=== PATIENT | female | born 1930 | race Caucasian/White ===

== ENCOUNTER 2019-04-07 13:35 | Inpatient (IN) | payer MEDICARE, MEDICAID ==
[~2019-04-07] VITALS: Ht 152.6 cm; Wt 60.8 kg
[~2019-04-07 13:35] MED LIST: AMLO10TA4 PO; ASPI-1073 PO; ATOR40TA70 PO; DESM0.1T PO; FERR-63 PO; HYDR10TA PO; LEVO750T46 MT; LEVO75TA7 PO; LISI10TA5 PO; METFORMIN; OMEP20CA4 PO; SIMVASTATIN PO; SITA50TA3 PO
[2019-04-07 17:01] LABS: HEMATOCRIT. 35.4 % (36.0-48.0); HEMOGLOBIN. 12.6 g/dL (12.0-16.0); MEAN CORPUSCULAR HEMOGLOBIN 28.8 pg (28.0-32.0); MEAN CORPUSCULAR VOLUME 80.7 fL (81.0-99.0); MEAN PLATELET VOLUME 8.1 fl (7.4-10.4); PLATELET 318 x1000/uL (130-400); RED BLOOD CELL COUNT 4.39 mill/uL (4.2-5.4); RED CELL DISTRIBUTION WIDTH 14.3 % (11.6-14.6)
[2019-04-07 17:05] LABS: CLARITY URINE CLEAR (CLEAR); COLOR URINE DARK YELLOW (YELLOW); KETONES URINE NEGATIVE (NEGATIVE); LEUKOCYTE ESTERASE URINE NEGATIVE (NEGATIVE); NITRITE URINE NEGATIVE (NEGATIVE); OCCULT BLOOD URINE NEGATIVE (NEGATIVE); PROTEIN URINE NEGATIVE (NEGATIVE); SPECIFIC GRAVITY URINE 1.013 (1.005-1.030); UROBILINOGEN URINE 0.2 E.U./dL (0.2-1.0)
[2019-04-07] MEDS ORDERED: KCL 20MEQ/100ML PREMIX 100 ML IV NR (17:30)
[2019-04-07] MEDS ORDERED: SODIUM CHLORIDE 0.9% 500 ML IV ONE (17:30)
[2019-04-07 17:38] LABS: PLATELET ESTIMATE NORMAL
[2019-04-07] MEDS ORDERED: LINA5TAB MT (20:34)
[2019-04-07] MEDS ORDERED: VITAMINE D3 (20:39)
[2019-04-07] MEDS ORDERED: FURO20TA4 PO (20:39)
[2019-04-07] MEDS ORDERED: HYDR-2510 PO (20:39)
[2019-04-07] MEDS ORDERED: FISH1CAP34 MT (20:39)
[2019-04-07 23:00] VITALS: BP 105/76
[2019-04-08] MEDS ORDERED: ACETAMINOPHEN 325MG TABLET PO SCH (00:45)
[2019-04-08] MEDS ORDERED: DEXTROSE 50% WATER 50ML SYRINGE IV PRN (00:45)
[2019-04-08] MEDS ORDERED: LEVOFLOXACIN 250MG PREMIX 50 ML IV SCH (01:15)
[2019-04-08] MEDS ORDERED: LEVOFLOXACIN 500MG PREMIX 100 ML IV SCH (03:00)
[2019-04-08] MEDS: SODIUM CHL 0.9% + KCL 20MEQ/L 1,000 ML IV SCH ×2 (05:05→18:19)
[2019-04-08] MEDS: LEVOFLOXACIN 250MG PREMIX 50 ML IV SCH (05:05)
[2019-04-08] MEDS: OMEPRAZOLE 20MG CAPSULE EXTENDED RELEASE PO SCH (06:34)
[2019-04-08] MEDS: BLOOD SUGAR DIAGNOSTIC STRIP TEST SCH ×4 (07:14→21:00)
[2019-04-08] MEDS: INSULIN LISPRO 100 UNITS/ML SUBCUT SCH ×2 (07:50→12:50)
[2019-04-08 07:52] LABS: HEMATOCRIT. 30.4 % (36.0-48.0); HEMOGLOBIN. 10.9 g/dL (12.0-16.0); MEAN CORPUSCULAR HEMOGLOBIN 28.8 pg (28.0-32.0); MEAN CORPUSCULAR VOLUME 80.1 fL (81.0-99.0); PLATELET 267 x1000/uL (130-400); RED BLOOD CELL COUNT 3.79 mill/uL (4.2-5.4); RED CELL DISTRIBUTION WIDTH 14.2 % (11.6-14.6)
[2019-04-08 08:00] VITALS: BP 115/38
[2019-04-08 08:31] LABS: CHLORIDE 80 mEq/L (98-107)
[2019-04-08 08:39] LABS: LDL CHOLESTEROL 73 mg/dL (5-100)
[2019-04-08 08:40] LABS: HDL CHOLESTEROL 39 mg/dL (40-59)
[2019-04-08] MEDS: LISINOPRIL 10MG TABLET PO SCH (09:00)
[2019-04-08] MEDS ORDERED: LEVOTHYROXINE SODIUM 75MCG TABLET PO SCH (09:00)
[2019-04-08] MEDS: AMLODIPINE 5MG TABLET PO SCH (09:00)
[2019-04-08] MEDS: LEVOTHYROXINE SODIUM 75MCG TABLET PO SCH (10:41)
[2019-04-08] MEDS: DOCUSATE SODIUM 250MG CAPSULE PO SCH (10:41)
[2019-04-08 12:00] VITALS: BP 132/48
[2019-04-08 13:51] LABS: PLATELET ESTIMATE NORMAL
[2019-04-08] MEDS ORDERED: NA PHOS,M-B/NA PHOS,DI-BA ENEMA 118ML PR PRN (15:15)
[2019-04-08 16:00] VITALS: BP 129/44
[2019-04-08] MEDS: HYDROCORTISONE 10MG TABLET PO SCH (18:13)
[2019-04-08] MEDS: BISACODYL 10MG SUPP PR PRN (18:13)
[2019-04-08 19:12] LABS: SODIUM URINE RANDOM 46 mEq/L
[2019-04-08 20:00] VITALS: BP 150/59
[2019-04-08] MEDS: POTASSIUM CHLORIDE 20MEQ TABLET SR PO SCH (20:21)
[2019-04-08] MEDS: ATORVASTATIN CALCIUM 40MG TABLET PO SCH (20:21)
[2019-04-09] VITALS: BP 123/62
[2019-04-09 04:00] VITALS: BP 140/57
[2019-04-09] MEDS: LEVOFLOXACIN 250MG PREMIX 50 ML IV SCH (04:15)
[2019-04-09] MEDS: SODIUM CHL 0.9% + KCL 20MEQ/L 1,000 ML IV SCH (04:18)
[2019-04-09] MEDS: LEVOTHYROXINE SODIUM 75MCG TABLET PO SCH (06:35)
[2019-04-09] MEDS: OMEPRAZOLE 20MG CAPSULE EXTENDED RELEASE PO SCH (06:35)
[2019-04-09 07:01] LABS: CHLORIDE 92 mEq/L (98-107)
[2019-04-09 07:32] LABS: PHOSPHORUS 1.9 mg/dL (2.5-4.9)
[2019-04-09] MEDS: BLOOD SUGAR DIAGNOSTIC STRIP TEST SCH ×5 (07:35→21:04)
[2019-04-09 07:58] LABS: BASOPHILS % 0.5 % (0.0-2.0); EOSINOPHILS % 3.2 % (0.0-5.0); LYMPHOCYTES % 7.6 % (20.0-50.0); MEAN CORPUSCULAR VOLUME 81.7 fL (81.0-99.0); MEAN PLATELET VOLUME 8.1 fl (7.4-10.4); MONOCYTES % 13.8 % (2.0-8.0); NEUTROPHILS % 74.9 % (40.0-76.0); PLATELET 279 x1000/uL (130-400); RED BLOOD CELL COUNT 3.79 mill/uL (4.2-5.4); RED CELL DISTRIBUTION WIDTH 14.1 % (11.6-14.6)
[2019-04-09 08:00] VITALS: BP 142/53
[2019-04-09] MEDS: HYDROCORTISONE 10MG TABLET PO SCH ×2 (09:22→17:04)
[2019-04-09] MEDS: POTASSIUM CHLORIDE 20MEQ TABLET SR PO SCH (09:22)
[2019-04-09] MEDS: AMLODIPINE 5MG TABLET PO SCH (09:23)
[2019-04-09] MEDS: LISINOPRIL 10MG TABLET PO SCH (09:23)
[2019-04-09] MEDS: DOCUSATE SODIUM 250MG CAPSULE PO SCH (09:23)
[2019-04-09 12:00] VITALS: BP 108/55
[2019-04-09] MEDS: IPRATROPIUM/ALBUTEROL 0.5-3(2.5)MG/3ML NEB HHN SCH ×3 (13:04→21:16)
[2019-04-09] MEDS ORDERED: POTASSIUM PHOS,M-BASIC-D-BASIC 15 MMOL in DEXT 5% WATER 245 ML IV NR (15:00)
[2019-04-09] MEDS ORDERED: MAGNESIUM 2 G PREMIX 50 ML IV NR (15:00)
[2019-04-09] MEDS ORDERED: CEFAZOLIN SODIUM 1000MG/VIAL IV ONE (15:00)
[2019-04-09 16:00] VITALS: BP 118/38
[2019-04-09] MEDS ORDERED: CEFAZOLIN 1000MG PREMIX 50 ML IV NR (17:00)
[2019-04-09] MEDS: INSULIN LISPRO 100 UNITS/ML SUBCUT SCH ×2 (18:53→21:00)
[2019-04-09 20:00] VITALS: BP 121/43
[2019-04-09] MEDS: FAMOTIDINE 20MG TABLET PO SCH (20:50)
[2019-04-09] MEDS: ATORVASTATIN CALCIUM 40MG TABLET PO SCH (20:50)
[2019-04-10] VITALS (53 sets, daily range): BP systolic 59–159; BP diastolic 20–97
[2019-04-10] MEDS: IPRATROPIUM/ALBUTEROL 0.5-3(2.5)MG/3ML NEB HHN SCH ×5 (00:37→20:05)
[2019-04-10] MEDS: SODIUM CHLORIDE 0.9% 1,000 ML IV SCH ×2 (03:07→22:44)
[2019-04-10] MEDS: LEVOFLOXACIN 250MG PREMIX 50 ML IV SCH (03:07)
[2019-04-10] MEDS ORDERED: BUPIVACAINE HCL/EPINEPHRINE 0.5%/0.0005 30ML ONE (06:30)
[2019-04-10] MEDS ORDERED: BACITRACIN 50,000 UNITS/VIAL ONE (06:32)
[2019-04-10] MEDS: BLOOD SUGAR DIAGNOSTIC STRIP TEST SCH ×8 (06:51→21:12)
[2019-04-10] MEDS: LEVOTHYROXINE SODIUM 75MCG TABLET PO SCH (06:51)
[2019-04-10] MEDS: INSULIN LISPRO 100 UNITS/ML SUBCUT SCH ×4 (06:52→20:56)
[2019-04-10] MEDS ORDERED: SUCCINYLCHOLINE CHLORIDE 200MG/10ML IV ONE (06:59)
[2019-04-10] MEDS ORDERED: EPHEDRINE SULFATE 50MG/ML VIAL ONE (06:59)
[2019-04-10] MEDS ORDERED: SODIUM CHLORIDE 0.9% 10ML VIAL ONE (06:59)
[2019-04-10] MEDS ORDERED: NEOSTIGMINE METHYLSULFATE 1MG/ML 10 ML VIAL ONE (06:59)
[2019-04-10] MEDS ORDERED: ONDANSETRON HCL 4MG/2ML INJ ONE (06:59)
[2019-04-10] MEDS ORDERED: PROPOFOL 200MG/20ML VIAL IV ONE (06:59)
[2019-04-10] MEDS ORDERED: PHENYLEPHRINE HCL 10 MG/ML 1ML (IV VIAL) IV ONE (06:59)
[2019-04-10] MEDS ORDERED: MIDAZOLAM HCL 2 MG/2 ML VIAL ONE (06:59)
[2019-04-10] MEDS ORDERED: GLYCOPYRROLATE 0.2 MG/ML 2ML VIAL ONE (06:59)
[2019-04-10] MEDS ORDERED: CEFAZOLIN SODIUM 1000MG/VIAL ONE (06:59)
[2019-04-10] MEDS ORDERED: FENTANYL CITRATE/PF 50MCG/ML 2ML VIAL ONE ×2 (06:59→07:23)
[2019-04-10] MEDS ORDERED: ROCURONIUM BROMIDE 10MG/ML VIAL 5ML IV ONE (06:59)
[2019-04-10] MEDS ORDERED: METOCLOPRAMIDE HCL 10MG/2ML VIAL ONE (07:00)
[2019-04-10 07:05] LABS: BASOPHILS % 0.4 % (0.0-2.0); EOSINOPHILS % 0.4 % (0.0-5.0); HEMATOCRIT. 28.7 % (36.0-48.0); HEMOGLOBIN. 10.1 g/dL (12.0-16.0); LYMPHOCYTES % 7.3 % (20.0-50.0); MEAN CORPUSCULAR HEMOGLOBIN 29.3 pg (28.0-32.0); MEAN CORPUSCULAR VOLUME 82.8 fL (81.0-99.0); MEAN PLATELET VOLUME 7.9 fl (7.4-10.4); MONOCYTES % 9.7 % (2.0-8.0); NEUTROPHILS % 82.2 % (40.0-76.0); PLATELET 253 x1000/uL (130-400); RED BLOOD CELL COUNT 3.46 mill/uL (4.2-5.4); RED CELL DISTRIBUTION WIDTH 14.5 % (11.6-14.6)
[2019-04-10 07:14] LABS: PHOSPHORUS 3.8 mg/dL (2.5-4.9)
[2019-04-10] MEDS ORDERED: SKIN ADHESIVE 0.7 GM EA TOP ONE (07:39)
[2019-04-10] MEDS: AMLODIPINE 5MG TABLET PO SCH (09:00)
[2019-04-10] MEDS: LISINOPRIL 10MG TABLET PO SCH (09:00)
[2019-04-10] MEDS: HYDROCORTISONE 10MG TABLET PO SCH ×2 (09:00→17:00)
[2019-04-10] MEDS: DOCUSATE SODIUM 250MG CAPSULE PO SCH (09:00)
[2019-04-10 09:56] LABS: BG BASE EXCESS -8.8 mmol/L (-2.0-2.0); BG BILEVEL POS AIRWAY PRESSURE 15/5; BG CARBOXYHEMOGLOBIN 0.1 % (0.5-1.5); BG DEOXYHEMOGLOBIN 2.3 % (0.0-5.0); BG FRACTION INSPIRED OXYGEN 100; BG HCO3 ACT 21.2 mmol/L (22.0-26.0); BG METHEMOGLOBIN 0.1 % (0.0-1.5); BG OXYGEN SATURATION 97.7 % (92.0-98.5); BG OXYHEMOGLOBIN 97.5 % (94.0-97.0); BG PCO2 67.2 mmHg (35.0-45.0); BG PH 7.117 (7.350-7.450); BG PO2 134.3 mmHg (75.0-100.0); BG SAMPLE SITE RIGHT RADIAL; BG TOTAL HEMOGLOBIN 11.7 g/dL (12.0-18.0); BG VENT MODE MASK - BIPAP; BG VENT RATE 14 set
[2019-04-10] MEDS ORDERED: NALOXONE HCL 0.4 MG/ML 1ML VIAL IV SCH (10:00)
[2019-04-10] MEDS ORDERED: FUROSEMIDE 40MG/4ML VIAL IVP NR ×2 (10:15→13:30)
[2019-04-10] MEDS ORDERED: FUROSEMIDE 40MG/4ML VIAL ONE (10:22)
[2019-04-10] MEDS ORDERED: FLUMAZENIL 0.1 MG/ML 5ML VIAL IV SCH (11:00)
[2019-04-10] MEDS ORDERED: PROPOFOL 10MG/ML 100ML 100 ML IV PRN (12:30)
[2019-04-10 12:35] LABS: BG BASE EXCESS -6.5 mmol/L (-2.0-2.0); BG CARBOXYHEMOGLOBIN 0.3 % (0.5-1.5); BG DEOXYHEMOGLOBIN 2.4 % (0.0-5.0); BG FRACTION INSPIRED OXYGEN 60; BG HCO3 ACT 18.9 mmol/L (22.0-26.0); BG METHEMOGLOBIN 0.4 % (0.0-1.5); BG OXYGEN SATURATION 97.6 % (92.0-98.5); BG OXYHEMOGLOBIN 96.9 % (94.0-97.0); BG PCO2 37.1 mmHg (35.0-45.0); BG PH 7.324 (7.350-7.450); BG PO2 99.8 mmHg (75.0-100.0); BG SAMPLE SITE RIGHT BRACHIAL; BG TIDAL VOLUME(mL) 500 mL; BG TOTAL HEMOGLOBIN 12.1 g/dL (12.0-18.0); BG VENT MODE VENT - A/C; BG VENT RATE 10 set
[2019-04-10] MEDS ORDERED: METHYLPREDNISOLONE SOD SUCC 125 MG/2 ML VIAL IV NR ×2 (12:39→12:45)
[2019-04-10] MEDS ORDERED: RACEPINEPHRINE 2.25% 0.5ML NEB VIAL HHN NR (12:45)
[2019-04-10] MEDS ORDERED: IPRATROPIUM/ALBUTEROL 0.5-3(2.5)MG/3ML NEB HHN PRN (12:45)
[2019-04-10] MEDS ORDERED: FENTANYL CITRATE/PF 500 MCG in SODIUM CHLORIDE 0.9% 40 ML IV PRN (13:15)
[2019-04-10] MEDS ORDERED: SODIUM CHLORIDE 0.9% 1,000 ML IV ONE (13:16)
[2019-04-10] MEDS ORDERED: HYDROMORPHONE HCL/PF 2MG/ML CPJ IV PRN (13:30)
[2019-04-10] MEDS ORDERED: ONDANSETRON HCL 4MG/2ML INJ IV PRN (13:30)
[2019-04-10] MEDS ORDERED: MEPERIDINE HCL/PF 25MG/ML CPJ IV PRN (13:30)
[2019-04-10 15:55] LABS: BG BASE EXCESS -4.6 mmol/L (-2.0-2.0); BG CARBOXYHEMOGLOBIN 0.1 % (0.5-1.5); BG DEOXYHEMOGLOBIN 2.3 % (0.0-5.0); BG FRACTION INSPIRED OXYGEN 50; BG HCO3 ACT 18.6 mmol/L (22.0-26.0); BG METHEMOGLOBIN 0.3 % (0.0-1.5); BG OXYGEN SATURATION 97.7 % (92.0-98.5); BG OXYHEMOGLOBIN 97.3 % (94.0-97.0); BG PCO2 28.8 mmHg (35.0-45.0); BG PH 7.427 (7.350-7.450); BG PO2 99.4 mmHg (75.0-100.0); BG PRESSURE SUPPORT 15; BG SAMPLE SITE RIGHT BRACHIAL; BG TOTAL HEMOGLOBIN 12.1 g/dL (12.0-18.0); BG VENT MODE VENT - CPAP
[2019-04-10] MEDS: FAMOTIDINE 20MG TABLET PO SCH (20:55)
[2019-04-10] MEDS: ATORVASTATIN CALCIUM 40MG TABLET PO SCH (20:55)
[2019-04-11] VITALS (23 sets, daily range): BP systolic 102–146; BP diastolic 35–84
[2019-04-11] MEDS: IPRATROPIUM/ALBUTEROL 0.5-3(2.5)MG/3ML NEB HHN SCH ×7 (00:04→23:42)
[2019-04-11] MEDS: LEVOFLOXACIN 250MG PREMIX 50 ML IV SCH (02:51)
[2019-04-11 06:30] LABS: HEMATOCRIT. 29.1 % (36.0-48.0); HEMOGLOBIN. 9.9 g/dL (12.0-16.0); MEAN CORPUSCULAR HEMOGLOBIN 28.6 pg (28.0-32.0); MEAN CORPUSCULAR VOLUME 84.3 fL (81.0-99.0); MEAN PLATELET VOLUME 7.8 fl (7.4-10.4); PLATELET 256 x1000/uL (130-400); RED BLOOD CELL COUNT 3.45 mill/uL (4.2-5.4)
[2019-04-11] MEDS ORDERED: FUROSEMIDE 40MG/4ML VIAL IVP NR (06:30)
[2019-04-11 06:37] LABS: PHOSPHORUS 3.2 mg/dL (2.5-4.9)
[2019-04-11 08:09] LABS: BG BASE EXCESS -2.2 mmol/L (-2.0-2.0); BG CARBOXYHEMOGLOBIN 0.4 % (0.5-1.5); BG DEOXYHEMOGLOBIN 3.6 % (0.0-5.0); BG FRACTION INSPIRED OXYGEN 28; BG HCO3 ACT 21.3 mmol/L (22.0-26.0); BG METHEMOGLOBIN 0.3 % (0.0-1.5); BG OXYGEN SATURATION 96.4 % (92.0-98.5); BG OXYHEMOGLOBIN 95.7 % (94.0-97.0); BG PCO2 32.5 mmHg (35.0-45.0); BG PH 7.435 (7.350-7.450); BG PO2 80.4 mmHg (75.0-100.0); BG SAMPLE SITE LEFT BRACHIAL; BG TOTAL HEMOGLOBIN 11.1 g/dL (12.0-18.0); BG VENT MODE NASAL CANNULA
[2019-04-11] MEDS: BLOOD SUGAR DIAGNOSTIC STRIP TEST SCH ×8 (08:23→21:37)
[2019-04-11] MEDS: LISINOPRIL 10MG TABLET PO SCH (08:24)
[2019-04-11] MEDS: AMLODIPINE 5MG TABLET PO SCH (08:24)
[2019-04-11] MEDS: DOCUSATE SODIUM 250MG CAPSULE PO SCH (08:52)
[2019-04-11] MEDS: LEVOTHYROXINE SODIUM 75MCG TABLET PO SCH (08:52)
[2019-04-11] MEDS: HYDROCORTISONE 10MG TABLET PO SCH ×2 (08:52→16:39)
[2019-04-11] MEDS: INSULIN LISPRO 100 UNITS/ML SUBCUT SCH ×4 (08:53→21:36)
[2019-04-11 10:39] LABS: PLATELET ESTIMATE NORMAL
[2019-04-11] MEDS: SODIUM CHLORIDE 0.9% 1,000 ML IV SCH (13:32)
[2019-04-11] MEDS: BISACODYL 10MG SUPP PR PRN (13:32)
[2019-04-11] MEDS: FAMOTIDINE 20MG TABLET PO SCH (21:29)
[2019-04-11] MEDS: ATORVASTATIN CALCIUM 40MG TABLET PO SCH (21:30)
[2019-04-12] VITALS: BP 133/54
[2019-04-12] MEDS: LEVOFLOXACIN 250MG PREMIX 50 ML IV SCH (03:04)
[2019-04-12] MEDS: SODIUM CHLORIDE 0.9% 1,000 ML IV SCH ×2 (03:04→20:56)
[2019-04-12] MEDS: IPRATROPIUM/ALBUTEROL 0.5-3(2.5)MG/3ML NEB HHN SCH ×5 (03:23→21:45)
[2019-04-12 04:00] VITALS: BP 168/43
[2019-04-12] MEDS: LEVOTHYROXINE SODIUM 75MCG TABLET PO SCH (06:19)
[2019-04-12] MEDS: INSULIN LISPRO 100 UNITS/ML SUBCUT SCH ×4 (06:27→21:00)
[2019-04-12] MEDS: BLOOD SUGAR DIAGNOSTIC STRIP TEST SCH ×8 (06:27→20:56)
[2019-04-12 06:46] LABS: HEMATOCRIT. 29.9 % (36.0-48.0); HEMOGLOBIN. 10.3 g/dL (12.0-16.0); MEAN CORPUSCULAR HEMOGLOBIN 28.9 pg (28.0-32.0); MEAN CORPUSCULAR VOLUME 84.2 fL (81.0-99.0); MEAN PLATELET VOLUME 7.7 fl (7.4-10.4); PLATELET 308 x1000/uL (130-400); RED BLOOD CELL COUNT 3.55 mill/uL (4.2-5.4); RED CELL DISTRIBUTION WIDTH 15.2 % (11.6-14.6)
[2019-04-12 07:25] LABS: PLATELET ESTIMATE NORMAL
[2019-04-12 07:31] LABS: PHOSPHORUS 2.1 mg/dL (2.5-4.9)
[2019-04-12 08:06] VITALS: BP_SYST 145; BP_SYST 156; BP_DIAS 61; BP_DIAS 91
[2019-04-12] MEDS ORDERED: AMIODARONE HCL 150 MG in DEXT 5% WATER 100 ML IV SCH (09:00)
[2019-04-12] MEDS ORDERED: MAGNESIUM 2 G PREMIX 50 ML IV SCH (09:00)
[2019-04-12] MEDS ORDERED: KCL 20MEQ/100ML PREMIX 100 ML IV SCH (09:00)
[2019-04-12] MEDS ORDERED: FUROSEMIDE 40MG/4ML VIAL IVP SCH (09:30)
[2019-04-12] MEDS: HYDROCORTISONE 10MG TABLET PO SCH ×2 (09:47→16:52)
[2019-04-12] MEDS: FUROSEMIDE 40MG TABLET PO SCH (09:47)
[2019-04-12] MEDS: DOCUSATE SODIUM 250MG CAPSULE PO SCH (09:47)
[2019-04-12 12:00] VITALS: BP 150/57
[2019-04-12] MEDS: METOPROLOL TARTRATE 25MG TABLET PO SCH ×2 (12:37→20:55)
[2019-04-12] MEDS: LISINOPRIL 10MG TABLET PO SCH (12:37)
[2019-04-12] MEDS: AMLODIPINE 5MG TABLET PO SCH (12:37)
[2019-04-12] MEDS ORDERED: POTASSIUM-SODIUM PHOSPHATE POWDER PACKET PO SCH (12:45)
[2019-04-12 16:00] VITALS: BP 144/41
[2019-04-12 20:00] VITALS: BP 146/60
[2019-04-12] MEDS: ATORVASTATIN CALCIUM 40MG TABLET PO SCH (20:54)
[2019-04-12] MEDS: FAMOTIDINE 20MG TABLET PO SCH (20:55)
[2019-04-12] MEDS: GUAIFENESIN 600MG ER TABLET PO SCH (20:55)
[2019-04-13] VITALS: BP 144/57
[2019-04-13] MEDS: IPRATROPIUM/ALBUTEROL 0.5-3(2.5)MG/3ML NEB HHN SCH ×6 (01:08→20:07)
[2019-04-13] MEDS: LEVOFLOXACIN 250MG PREMIX 50 ML IV SCH (02:27)
[2019-04-13 04:00] VITALS: BP 150/54
[2019-04-13] MEDS: LEVOTHYROXINE SODIUM 75MCG TABLET PO SCH (06:32)
[2019-04-13] MEDS: INSULIN LISPRO 100 UNITS/ML SUBCUT SCH ×4 (06:35→21:00)
[2019-04-13] MEDS: BLOOD SUGAR DIAGNOSTIC STRIP TEST SCH ×8 (06:35→21:39)
[2019-04-13 07:25] LABS: HEMATOCRIT. 33.8 % (36.0-48.0); HEMOGLOBIN. 11.5 g/dL (12.0-16.0); MEAN CORPUSCULAR HEMOGLOBIN 28.8 pg (28.0-32.0); MEAN CORPUSCULAR VOLUME 84.7 fL (81.0-99.0); MEAN PLATELET VOLUME 7.5 fl (7.4-10.4); PLATELET 311 x1000/uL (130-400); RED BLOOD CELL COUNT 3.99 mill/uL (4.2-5.4); RED CELL DISTRIBUTION WIDTH 15.1 % (11.6-14.6)
[2019-04-13 08:09] VITALS: BP 151/77
[2019-04-13 08:18] LABS: BG BASE EXCESS 1.7 mmol/L (-2.0-2.0); BG CARBOXYHEMOGLOBIN 0.5 % (0.5-1.5); BG DEOXYHEMOGLOBIN 6.2 % (0.0-5.0); BG HCO3 ACT 24.9 mmol/L (22.0-26.0); BG OXYGEN SATURATION 93.8 % (92.0-98.5); BG OXYHEMOGLOBIN 93.3 % (94.0-97.0); BG PCO2 34.4 mmHg (35.0-45.0); BG PH 7.477 (7.350-7.450); BG PO2 69.8 mmHg (75.0-100.0); BG SAMPLE SITE RIGHT RADIAL; BG TOTAL HEMOGLOBIN 12.6 g/dL (12.0-18.0); BG VENT MODE ROOM AIR
[2019-04-13] MEDS: METOPROLOL TARTRATE 25MG TABLET PO SCH ×2 (08:51→21:17)
[2019-04-13] MEDS: AMLODIPINE 5MG TABLET PO SCH (08:51)
[2019-04-13] MEDS: DOCUSATE SODIUM 250MG CAPSULE PO SCH (08:51)
[2019-04-13] MEDS: LISINOPRIL 10MG TABLET PO SCH (08:52)
[2019-04-13] MEDS: FUROSEMIDE 40MG TABLET PO SCH (08:52)
[2019-04-13] MEDS: HYDROCORTISONE 10MG TABLET PO SCH ×2 (08:52→17:32)
[2019-04-13] MEDS: GUAIFENESIN 600MG ER TABLET PO SCH ×2 (08:52→21:17)
[2019-04-13 10:53] LABS: PLATELET ESTIMATE NORMAL
[2019-04-13] MEDS: SODIUM CHLORIDE 0.9% 1,000 ML IV SCH (10:59)
[2019-04-13 16:00] VITALS: BP 121/52
[2019-04-13 20:00] VITALS: BP 141/40
[2019-04-13] MEDS: FAMOTIDINE 20MG TABLET PO SCH (21:17)
[2019-04-13] MEDS: LEVOFLOXACIN 250MG TABLET PO SCH (21:17)
[2019-04-13] MEDS: ATORVASTATIN CALCIUM 40MG TABLET PO SCH (21:17)
[2019-04-14] VITALS: BP 137/55
[2019-04-14] MEDS: IPRATROPIUM/ALBUTEROL 0.5-3(2.5)MG/3ML NEB HHN SCH ×6 (01:11→20:02)
[2019-04-14 04:00] VITALS: BP 146/56
[2019-04-14] MEDS: BLOOD SUGAR DIAGNOSTIC STRIP TEST SCH ×5 (06:35→19:49)
[2019-04-14] MEDS: LEVOTHYROXINE SODIUM 75MCG TABLET PO SCH (06:39)
[2019-04-14] MEDS: INSULIN LISPRO 100 UNITS/ML SUBCUT SCH ×4 (06:42→21:00)
[2019-04-14 07:26] LABS: HEMATOCRIT. 33.1 % (36.0-48.0); HEMOGLOBIN. 11.3 g/dL (12.0-16.0); MEAN CORPUSCULAR VOLUME 85.3 fL (81.0-99.0); MEAN PLATELET VOLUME 7.6 fl (7.4-10.4); PLATELET 279 x1000/uL (130-400); RED BLOOD CELL COUNT 3.88 mill/uL (4.2-5.4); RED CELL DISTRIBUTION WIDTH 14.8 % (11.6-14.6)
[2019-04-14] MEDS ORDERED: POTASSIUM CHLORIDE 20MEQ TABLET SR PO NR (08:34)
[2019-04-14] MEDS: FUROSEMIDE 40MG TABLET PO SCH (09:25)
[2019-04-14] MEDS: GUAIFENESIN 600MG ER TABLET PO SCH ×2 (09:25→21:22)
[2019-04-14] MEDS: LISINOPRIL 10MG TABLET PO SCH (09:25)
[2019-04-14] MEDS: HYDROCORTISONE 10MG TABLET PO SCH ×2 (09:25→18:22)
[2019-04-14] MEDS: DOCUSATE SODIUM 250MG CAPSULE PO SCH (09:26)
[2019-04-14] MEDS: METOPROLOL TARTRATE 25MG TABLET PO SCH ×2 (09:26→21:22)
[2019-04-14] MEDS: AMLODIPINE 5MG TABLET PO SCH (09:26)
[2019-04-14 12:00] VITALS: BP 147/60
[2019-04-14 16:00] VITALS: BP 137/68
[2019-04-14 16:28] LABS: PHOSPHORUS 3.1 mg/dL (2.5-4.9)
[2019-04-14 17:40] LABS: PLATELET ESTIMATE NORMAL
[2019-04-14 20:00] VITALS: BP 145/58
[2019-04-14] MEDS: FAMOTIDINE 20MG TABLET PO SCH (21:22)
[2019-04-14] MEDS: ATORVASTATIN CALCIUM 40MG TABLET PO SCH (21:22)
[2019-04-14] MEDS: LEVOFLOXACIN 250MG TABLET PO SCH (21:22)
[2019-04-15] VITALS: BP 145/53
[2019-04-15] MEDS: IPRATROPIUM/ALBUTEROL 0.5-3(2.5)MG/3ML NEB HHN SCH ×4 (01:03→12:45)
[2019-04-15 04:00] VITALS: BP 116/62
[2019-04-15] MEDS: LEVOTHYROXINE SODIUM 75MCG TABLET PO SCH (06:09)
[2019-04-15] MEDS: BLOOD SUGAR DIAGNOSTIC STRIP TEST SCH ×2 (06:33→11:29)
[2019-04-15] MEDS: INSULIN LISPRO 100 UNITS/ML SUBCUT SCH ×2 (06:34→11:29)
[2019-04-15 07:51] LABS: HEMATOCRIT. 31.3 % (36.0-48.0); MEAN CORPUSCULAR HEMOGLOBIN 29.5 pg (28.0-32.0); MEAN CORPUSCULAR VOLUME 84.2 fL (81.0-99.0); MEAN PLATELET VOLUME 7.3 fl (7.4-10.4); PLATELET 256 x1000/uL (130-400); RED BLOOD CELL COUNT 3.71 mill/uL (4.2-5.4)
[2019-04-15 08:24] LABS: PHOSPHORUS 3.4 mg/dL (2.5-4.9)
[2019-04-15] MEDS: FUROSEMIDE 40MG TABLET PO SCH (09:04)
[2019-04-15] MEDS: LISINOPRIL 10MG TABLET PO SCH (09:06)
[2019-04-15] MEDS: METOPROLOL TARTRATE 25MG TABLET PO SCH (09:06)
[2019-04-15] MEDS: GUAIFENESIN 600MG ER TABLET PO SCH (09:06)
[2019-04-15] MEDS: HYDROCORTISONE 10MG TABLET PO SCH (09:07)
[2019-04-15] MEDS: DOCUSATE SODIUM 250MG CAPSULE PO SCH (09:07)
[2019-04-15] MEDS: AMLODIPINE 5MG TABLET PO SCH (09:07)
[2019-04-15] MEDS ORDERED: ALBU18HF2 IH (10:01)
[2019-04-15] MEDS ORDERED: POTASSIUM CHLORIDE 20MEQ/PACKET PO NR (11:15)
[2019-04-15 12:00] VITALS: BP 103/64
[2019-04-15 14:08] LABS: PLATELET ESTIMATE NORMAL
[2019-04-17 13:34] LABS: ANA IFA Negative (.); ANGIOTENSION CONVERTING ENZYME 11 U/L (14-82)
== END 2019-04-15 15:45 | disposition home health service (06) | DRG 405 ==
LOC: ER 13:35 → ENRESERV 19:02 → 6EST 19:05 → CVICU 04-10 11:56 → 8WST 04-11 12:00
PROVIDERS: ADMIT Internal Medicine; ATTEND Internal Medicine
PROC: 5A1935Z Respiratory Ventilation, Less than 24 Consecutive Hours (ICD-10-PCS; principal; 2019-04-10)
PROC: 07B74ZX Excision of Thorax Lymphatic, Percutaneous Endoscopic Approach, Diagnostic (ICD-10-PCS; 2019-04-10)
PROC: 5A09357 Assistance with Respiratory Ventilation, Less than 24 Consecutive Hours, Continuous Positive Airway Pressure (ICD-10-PCS; 2019-04-10)
DX: E22.2 Syndrome of inappropriate secretion of antidiuretic hormone (principal); J96.02 Acute respiratory failure with hypercapnia; E44.0 Moderate protein-calorie malnutrition; E87.2 Acidosis; J44.1 Chronic obstructive pulmonary disease with (acute) exacerbation; E11.65 Type 2 diabetes mellitus with hyperglycemia; I44.1 Atrioventricular block, second degree; E83.39 Other disorders of phosphorus metabolism; E83.42 Hypomagnesemia; E23.0 Hypopituitarism; D86.9 Sarcoidosis, unspecified; E87.8 Other disorders of electrolyte and fluid balance, not elsewhere classified; E03.9 Hypothyroidism, unspecified; E78.00 Pure hypercholesterolemia, unspecified; E78.5 Hyperlipidemia, unspecified; E87.6 Hypokalemia; I10 Essential (primary) hypertension; G47.00 Insomnia, unspecified; E83.51 Hypocalcemia; D64.9 Anemia, unspecified; T50.995A Adverse effect of other drugs, medicaments and biological substances, initial encounter; Z79.84 Long term (current) use of oral hypoglycemic drugs; Z79.899 Other long term (current) drug therapy; Y92.89 Other specified places as the place of occurrence of the external cause; Z82.49 Family history of ischemic heart disease and other diseases of the circulatory system; Z82.0 Family history of epilepsy and other diseases of the nervous system; Z83.3 Family history of diabetes mellitus; Z68.26 Body mass index [BMI] 26.0-26.9, adult; Z79.82 Long term (current) use of aspirin; Z78.1 Physical restraint status
CPT/HCPCS: 36415; 36600; 71045; 71260; 73706; 80048; 80061; 81003; 82088; 82164; 82306; 82375; 82533; 82805; 82962; 83036; 83735; 83935; 84100; 84145; 84300; 84439; 84443; 84478; 84481; 86256; 86431; 88305; 88312; 88331; 93005; 94618; 94640; 96360; 97162; 97164; 99285; C1893; J0171; J0282; J0330; J0690; J1815; J1940; J1956; J2250; J2310; J2370; J2405; J2704; J2710; J2765; J2930; J3010; J3475; J3480; J3490; J7030; J7040; J7060; J7620; A4315

== ENCOUNTER 2019-05-20 12:35 | Inpatient (IN) | payer MEDICARE, MEDICAID ==
[~2019-05-20] VITALS: Ht 147.3 cm; Wt 62.2 kg
[~2019-05-20 12:35] MED LIST changes: +ALBU18HF2 IH; -DESM0.1T PO; +FISH1CAP34 MT; +FURO20TA4 PO; +LINA5TAB MT; +VITAMINE D3
[2019-05-20 15:54] LABS: HEMATOCRIT. 37.5 % (36.0-48.0); HEMOGLOBIN. 12.5 g/dL (12.0-16.0); MEAN CORPUSCULAR HEMOGLOBIN 28.9 pg (28.0-32.0); MEAN CORPUSCULAR VOLUME 86.3 fL (81.0-99.0); MEAN PLATELET VOLUME 8.3 fl (7.4-10.4); PLATELET 470 x1000/uL (130-400); RED BLOOD CELL COUNT 4.34 mill/uL (4.2-5.4); RED CELL DISTRIBUTION WIDTH 16.4 % (11.6-14.6)
[2019-05-20 15:55] LABS: CHLORIDE 91 mEq/L (98-107)
[2019-05-20 16:14] LABS: PLATELET ESTIMATE INCREASED
[2019-05-20] MEDS ORDERED: NITROGLYCERIN 0.4MG TABLET SL SL PRN (16:45)
[2019-05-20] MEDS ORDERED: FUROSEMIDE 40MG/4ML VIAL IV ONE (16:45)
[2019-05-20] MEDS ORDERED: ASPIRIN 81MG TABLET PO ONE (16:45)
[2019-05-20] MEDS ORDERED: CLONIDINE 0.1MG TABLET PO PRN (17:15)
[2019-05-20] MEDS ORDERED: BENZONATATE 100MG CAPSULE PO PRN (17:15)
[2019-05-20] MEDS ORDERED: CEFTRIAXONE 1 G PREMIX 50 ML IV NR (17:25)
[2019-05-20] MEDS: AZITHROMYCIN 500 MG TABLET PO SCH (17:59)
[2019-05-20] MEDS: ACETAMINOPHEN 325MG TABLET PO PRN (18:00)
[2019-05-20 19:28] LABS: CLARITY URINE CLEAR (CLEAR); COLOR URINE YELLOW (YELLOW); KETONES URINE NEGATIVE (NEGATIVE); LEUKOCYTE ESTERASE URINE TRACE (NEGATIVE); NITRITE URINE NEGATIVE (NEGATIVE); OCCULT BLOOD URINE NEGATIVE (NEGATIVE); PROTEIN URINE NEGATIVE (NEGATIVE); SPECIFIC GRAVITY URINE 1.009 (1.005-1.030); UROBILINOGEN URINE 0.2 E.U./dL (0.2-1.0)
[2019-05-20] MEDS: GUAIFENESIN 600MG ER TABLET PO SCH (23:25)
[2019-05-21] VITALS (45 sets, daily range): BP systolic 48–163; BP diastolic 23–110
[2019-05-21] MEDS: IPRATROPIUM/ALBUTEROL 0.5-3(2.5)MG/3ML NEB HHN PRN ×2 (01:05→10:49)
[2019-05-21] MEDS ORDERED: P20 PO (02:54)
[2019-05-21 07:26] LABS: HEMATOCRIT. 32.5 % (36.0-48.0); HEMOGLOBIN. 11.1 g/dL (12.0-16.0); MEAN CORPUSCULAR HEMOGLOBIN 29.2 pg (28.0-32.0); MEAN PLATELET VOLUME 8.4 fl (7.4-10.4); PLATELET 357 x1000/uL (130-400); RED BLOOD CELL COUNT 3.78 mill/uL (4.2-5.4); RED CELL DISTRIBUTION WIDTH 16.1 % (11.6-14.6)
[2019-05-21] MEDS: GUAIFENESIN 600MG ER TABLET PO SCH (09:36)
[2019-05-21] MEDS: AZITHROMYCIN 500 MG TABLET PO SCH (09:36)
[2019-05-21] MEDS ORDERED: IPRATROPIUM/ALBUTEROL 0.5-3(2.5)MG/3ML NEB HHN PRN (12:45)
[2019-05-21] MEDS ORDERED: PHENYLEPHRINE 20 MG in DEXT 5% WATER 248 ML IV PRN (12:50)
[2019-05-21] MEDS ORDERED: VECURONIUM BROMIDE 10 MG/VIAL IV ONE (13:00)
[2019-05-21] MEDS ORDERED: ETOMIDATE 2MG/ML 10ML VIAL IV ONE (13:00)
[2019-05-21] MEDS ORDERED: SODIUM CHLORIDE 0.9% 10ML VIAL ONE (13:00)
[2019-05-21 13:20] LABS: BG BASE EXCESS -2.4 mmol/L (-2.0-2.0); BG CARBOXYHEMOGLOBIN 0.3 % (0.5-1.5); BG DEOXYHEMOGLOBIN 0.7 % (0.0-5.0); BG FRACTION INSPIRED OXYGEN 100; BG HCO3 ACT 20.6 mmol/L (22.0-26.0); BG METHEMOGLOBIN 0.3 % (0.0-1.5); BG OXYGEN SATURATION 99.3 % (92.0-98.5); BG OXYHEMOGLOBIN 98.7 % (94.0-97.0); BG PCO2 30.4 mmHg (35.0-45.0); BG PH 7.448 (7.350-7.450); BG PO2 245.4 mmHg (75.0-100.0); BG SAMPLE SITE RIGHT BRACHIAL; BG TIDAL VOLUME(mL) 500 mL; BG TOTAL HEMOGLOBIN 13.2 g/dL (12.0-18.0); BG VENT MODE VENT - A/C; BG VENT RATE 16 set
[2019-05-21] MEDS: DEXT 5%/0.45% NACL 1000ML 1,000 ML IV SCH (13:44)
[2019-05-21] MEDS: PHENYLEPHRINE 20 MG in DEXT 5% WATER 248 ML IV PRN ×3 (13:44→22:21)
[2019-05-21] MEDS: METHYLPREDNISOLONE SOD SUCC 125 MG/2 ML VIAL IV SCH ×2 (13:48→23:32)
[2019-05-21] MEDS: PROPOFOL 10MG/ML 100ML 100 ML IV PRN (13:50)
[2019-05-21 14:05] LABS: PLATELET ESTIMATE NORMAL
[2019-05-21] MEDS ORDERED: AZITHROMYCIN 500 MG in DEXT 5% WATER 250 ML IV SCH (15:00)
[2019-05-21] MEDS: IPRATROPIUM/ALBUTEROL 0.5-3(2.5)MG/3ML NEB HHN SCH ×2 (16:05→20:27)
[2019-05-21] MEDS: FENTANYL CITRATE/PF 500 MCG in SODIUM CHLORIDE 0.9% 40 ML IV PRN (17:00)
[2019-05-21] MEDS ORDERED: CEFTRIAXONE 1 G PREMIX 50 ML IV SCH (18:00)
[2019-05-21] MEDS: CEFTRIAXONE 1 G PREMIX 50 ML IV SCH (20:03)
[2019-05-21 20:20] LABS: PARTIAL THROMBOPLASTIN TIME 25.7 sec (23.4-31.0); PROTHROMBIN TIME 10.7 sec (9.6-11.0)
[2019-05-21 20:25] LABS: T4 FREE 0.8 ng/dL (0.76-1.46)
[2019-05-21 20:31] LABS: CLARITY URINE TURBID (CLEAR); COLOR URINE DARK YELLOW (YELLOW); KETONES URINE NEGATIVE (NEGATIVE); LEUKOCYTE ESTERASE URINE NEGATIVE (NEGATIVE); NITRITE URINE NEGATIVE (NEGATIVE); OCCULT BLOOD URINE TRACE (NEGATIVE); PROTEIN URINE 1+ (NEGATIVE); SPECIFIC GRAVITY URINE 1.018 (1.005-1.030); UROBILINOGEN URINE 0.2 E.U./dL (0.2-1.0)
[2019-05-21] MEDS: AZITHROMYCIN 500 MG in DEXT 5% WATER 250 ML IV SCH (21:42)
[2019-05-22] VITALS (95 sets, daily range): BP systolic 78–163; BP diastolic 40–71
[2019-05-22] MEDS: IPRATROPIUM/ALBUTEROL 0.5-3(2.5)MG/3ML NEB HHN SCH ×6 (00:19→20:08)
[2019-05-22] MEDS: PHENYLEPHRINE 20 MG in DEXT 5% WATER 248 ML IV PRN (01:09)
[2019-05-22] MEDS ORDERED: PHENYLEPHRINE 80 MG in DEXT 5% WATER 492 ML IV PRN (02:30)
[2019-05-22] MEDS: DEXT 5%/0.45% NACL 1000ML 1,000 ML IV SCH (06:00)
[2019-05-22 06:31] LABS: HEMATOCRIT. 35.4 % (36.0-48.0); HEMOGLOBIN. 11.9 g/dL (12.0-16.0); MEAN CORPUSCULAR HEMOGLOBIN 28.8 pg (28.0-32.0); MEAN CORPUSCULAR VOLUME 85.5 fL (81.0-99.0); MEAN PLATELET VOLUME 8.8 fl (7.4-10.4); PLATELET 394 x1000/uL (130-400); RED BLOOD CELL COUNT 4.14 mill/uL (4.2-5.4); RED CELL DISTRIBUTION WIDTH 15.7 % (11.6-14.6)
[2019-05-22 06:42] LABS: PHOSPHORUS 5.2 mg/dL (2.5-4.9)
[2019-05-22] MEDS: METHYLPREDNISOLONE SOD SUCC 125 MG/2 ML VIAL IV SCH ×3 (06:47→22:15)
[2019-05-22 08:42] LABS: BG CARBOXYHEMOGLOBIN 0.3 % (0.5-1.5); BG DEOXYHEMOGLOBIN 2.9 % (0.0-5.0); BG FRACTION INSPIRED OXYGEN 40; BG HCO3 ACT 18.4 mmol/L (22.0-26.0); BG METHEMOGLOBIN 0.3 % (0.0-1.5); BG OXYGEN SATURATION 97.1 % (92.0-98.5); BG OXYHEMOGLOBIN 96.5 % (94.0-97.0); BG PO2 97.1 mmHg (75.0-100.0); BG SAMPLE SITE RIGHT RADIAL; BG TIDAL VOLUME(mL) 500 mL; BG TOTAL HEMOGLOBIN 11.6 g/dL (12.0-18.0); BG VENT MODE VENT - A/C; BG VENT RATE 12 set
[2019-05-22] MEDS: FENTANYL CITRATE/PF 500 MCG in SODIUM CHLORIDE 0.9% 40 ML IV PRN (08:49)
[2019-05-22] MEDS: PROPOFOL 10MG/ML 100ML 100 ML IV PRN ×2 (08:49→19:40)
[2019-05-22 08:57] LABS: PLATELET ESTIMATE NORMAL
[2019-05-22] MEDS ORDERED: SODIUM BICARBONATE 4% (2.4MEQ) 5ML VIAL IV ONE (09:35)
[2019-05-22] MEDS: SODIUM CHLORIDE 0.9% 1,000 ML IV SCH (11:42)
[2019-05-22] MEDS ORDERED: DOPAMINE 400MG/250ML PREMIX 250 ML IV SCH (13:15)
[2019-05-22] MEDS ORDERED: PHENYLEPHRINE 80 MG in SODIUM CHLORIDE 0.9% 492 ML IV PRN (13:30)
[2019-05-22] MEDS: CEFTRIAXONE 1 G PREMIX 50 ML IV SCH (19:46)
[2019-05-22 20:22] LABS: SODIUM URINE RANDOM 7 mEq/L
[2019-05-22] MEDS: AZITHROMYCIN 500 MG in DEXT 5% WATER 250 ML IV SCH (20:45)
[2019-05-23] VITALS (89 sets, daily range): BP systolic 77–161; BP diastolic 34–71
[2019-05-23] MEDS: IPRATROPIUM/ALBUTEROL 0.5-3(2.5)MG/3ML NEB HHN SCH ×6 (00:03→20:01)
[2019-05-23] MEDS: LEVOTHYROXINE SODIUM 100 MCG/ VIAL IV SCH ×2 (01:42→23:25)
[2019-05-23] MEDS: PROPOFOL 10MG/ML 100ML 100 ML IV PRN (04:28)
[2019-05-23] MEDS: METHYLPREDNISOLONE SOD SUCC 125 MG/2 ML VIAL IV SCH (05:05)
[2019-05-23] MEDS: SODIUM CHLORIDE 0.9% 1,000 ML IV SCH (05:05)
[2019-05-23] MEDS: FENTANYL CITRATE/PF 500 MCG in SODIUM CHLORIDE 0.9% 40 ML IV PRN (05:06)
[2019-05-23 05:56] LABS: HEMATOCRIT. 33.2 % (36.0-48.0); HEMOGLOBIN. 11.5 g/dL (12.0-16.0); MEAN CORPUSCULAR HEMOGLOBIN 29.2 pg (28.0-32.0); MEAN PLATELET VOLUME 8.7 fl (7.4-10.4); PLATELET 353 x1000/uL (130-400); RED BLOOD CELL COUNT 3.95 mill/uL (4.2-5.4); RED CELL DISTRIBUTION WIDTH 15.7 % (11.6-14.6)
[2019-05-23 06:56] LABS: CHLORIDE 94 mEq/L (98-107)
[2019-05-23 07:03] LABS: PHOSPHORUS 4.2 mg/dL (2.5-4.9)
[2019-05-23 07:05] LABS: CREATINE KINASE 33 IU/L (26-192)
[2019-05-23 07:09] LABS: PLATELET ESTIMATE NORMAL
[2019-05-23 07:56] LABS: BG BASE EXCESS -3.9 mmol/L (-2.0-2.0); BG CARBOXYHEMOGLOBIN 0.6 % (0.5-1.5); BG DEOXYHEMOGLOBIN 3.7 % (0.0-5.0); BG FRACTION INSPIRED OXYGEN 40; BG HCO3 ACT 19.2 mmol/L (22.0-26.0); BG METHEMOGLOBIN 0.1 % (0.0-1.5); BG OXYGEN SATURATION 96.3 % (92.0-98.5); BG OXYHEMOGLOBIN 95.6 % (94.0-97.0); BG PCO2 28.6 mmHg (35.0-45.0); BG PH 7.445 (7.350-7.450); BG PO2 75.6 mmHg (75.0-100.0); BG SAMPLE SITE RIGHT BRACHIAL; BG TIDAL VOLUME(mL) 500 mL; BG TOTAL HEMOGLOBIN 10.8 g/dL (12.0-18.0); BG VENT MODE VENT - A/C; BG VENT RATE 12 set
[2019-05-23] MEDS ORDERED: DEXTROSE 50% WATER 50ML SYRINGE IV PRN (10:15)
[2019-05-23] MEDS: MIDODRINE HCL 5MG TABLET PO SCH ×3 (10:45→17:54)
[2019-05-23] MEDS: BLOOD SUGAR DIAGNOSTIC STRIP TEST SCH ×3 (11:27→20:25)
[2019-05-23] MEDS ORDERED: INSULIN LISPRO 100 UNITS/ML SUBCUT SCH (11:30)
[2019-05-23] MEDS: INSULIN LISPRO (LOW DOSE) 100 UNITS/ML SUBCUT SCH ×3 (11:38→21:11)
[2019-05-23] MEDS ORDERED: DOPAMINE 400MG/250ML PREMIX 250 ML IV SCH (11:55)
[2019-05-23] MEDS ORDERED: MIDAZOLAM HCL 100 MG in DEXT 5% WATER 80 ML IV PRN (12:00)
[2019-05-23] MEDS: METHYLPREDNISOLONE SOD SUCC 40 MG/ML VIAL IV SCH ×2 (14:58→21:08)
[2019-05-23] MEDS: AZITHROMYCIN 500 MG in DEXT 5% WATER 250 ML IV SCH (20:11)
[2019-05-23] MEDS: CEFTRIAXONE 1 G PREMIX 50 ML IV SCH (20:11)
[2019-05-24] VITALS (62 sets, daily range): BP systolic 97–163; BP diastolic 37–100
[2019-05-24] MEDS: IPRATROPIUM/ALBUTEROL 0.5-3(2.5)MG/3ML NEB HHN SCH ×6 (00:15→19:50)
[2019-05-24] MEDS: SODIUM CHLORIDE 0.9% 1,000 ML IV SCH ×2 (01:01→23:38)
[2019-05-24 05:14] LABS: HEMATOCRIT. 33.9 % (36.0-48.0); HEMOGLOBIN. 11.5 g/dL (12.0-16.0); MEAN CORPUSCULAR HEMOGLOBIN 29.1 pg (28.0-32.0); MEAN CORPUSCULAR VOLUME 85.6 fL (81.0-99.0); MEAN PLATELET VOLUME 9.4 fl (7.4-10.4); PLATELET 240 x1000/uL (130-400); RED BLOOD CELL COUNT 3.95 mill/uL (4.2-5.4); RED CELL DISTRIBUTION WIDTH 15.8 % (11.6-14.6)
[2019-05-24 05:53] LABS: CHLORIDE 101 mEq/L (98-107)
[2019-05-24] MEDS: INSULIN LISPRO (LOW DOSE) 100 UNITS/ML SUBCUT SCH ×4 (06:06→21:02)
[2019-05-24] MEDS: BLOOD SUGAR DIAGNOSTIC STRIP TEST SCH ×4 (06:07→21:01)
[2019-05-24] MEDS: METHYLPREDNISOLONE SOD SUCC 40 MG/ML VIAL IV SCH ×3 (06:07→21:01)
[2019-05-24 08:27] LABS: PLATELET ESTIMATE NORMAL
[2019-05-24 08:34] LABS: BG BASE EXCESS -0.9 mmol/L (-2.0-2.0); BG CARBOXYHEMOGLOBIN 0.3 % (0.5-1.5); BG DEOXYHEMOGLOBIN 1.9 % (0.0-5.0); BG FRACTION INSPIRED OXYGEN 40; BG HCO3 ACT 22.6 mmol/L (22.0-26.0); BG METHEMOGLOBIN 0.2 % (0.0-1.5); BG OXYGEN SATURATION 98.1 % (92.0-98.5); BG OXYHEMOGLOBIN 97.6 % (94.0-97.0); BG PCO2 33.7 mmHg (35.0-45.0); BG PH 7.444 (7.350-7.450); BG PO2 132.1 mmHg (75.0-100.0); BG PRESSURE SUPPORT 12; BG SAMPLE SITE RIGHT RADIAL; BG TIDAL VOLUME(mL) 500 mL; BG TOTAL HEMOGLOBIN 12.2 g/dL (12.0-18.0); BG VENT MODE VENT - SIMV; BG VENT RATE 8 set
[2019-05-24 09:06] LABS: ANTI-DNA DOUBLE STRANDED QUANT 1 IU/mL (0-9); COMPLEMENT C3 114 mg/dL (82-167)
[2019-05-24] MEDS: MIDODRINE HCL 5MG TABLET PO SCH ×3 (09:36→18:28)
[2019-05-24] MEDS: PANTOPRAZOLE SODIUM 40 MG/VIAL IV SCH (13:06)
[2019-05-24] MEDS: CEFTRIAXONE 1 G PREMIX 50 ML IV SCH (20:03)
[2019-05-24] MEDS: AZITHROMYCIN 500 MG in DEXT 5% WATER 250 ML IV SCH (20:03)
[2019-05-24] MEDS: LEVOTHYROXINE SODIUM 100 MCG/ VIAL IV SCH (23:39)
[2019-05-24] MEDS: FENTANYL CITRATE/PF 500 MCG in SODIUM CHLORIDE 0.9% 40 ML IV PRN (23:40)
[2019-05-25] VITALS (80 sets, daily range): BP systolic 91–164; BP diastolic 39–88
[2019-05-25] MEDS: IPRATROPIUM/ALBUTEROL 0.5-3(2.5)MG/3ML NEB HHN SCH ×5 (00:09→20:31)
[2019-05-25 05:46] LABS: HEMATOCRIT. 30.8 % (36.0-48.0); HEMOGLOBIN. 10.2 g/dL (12.0-16.0); MEAN CORPUSCULAR HEMOGLOBIN 28.6 pg (28.0-32.0); MEAN CORPUSCULAR VOLUME 86.3 fL (81.0-99.0); MEAN PLATELET VOLUME 8.8 fl (7.4-10.4); PLATELET 267 x1000/uL (130-400); RED BLOOD CELL COUNT 3.57 mill/uL (4.2-5.4); RED CELL DISTRIBUTION WIDTH 16.3 % (11.6-14.6)
[2019-05-25 06:03] LABS: PHOSPHORUS 3.1 mg/dL (2.5-4.9)
[2019-05-25] MEDS: INSULIN LISPRO (LOW DOSE) 100 UNITS/ML SUBCUT SCH ×4 (06:10→21:04)
[2019-05-25] MEDS: METHYLPREDNISOLONE SOD SUCC 40 MG/ML VIAL IV SCH ×3 (06:10→21:03)
[2019-05-25] MEDS: BLOOD SUGAR DIAGNOSTIC STRIP TEST SCH ×4 (06:10→20:58)
[2019-05-25 07:48] LABS: BG BASE EXCESS -2.3 mmol/L (-2.0-2.0); BG CARBOXYHEMOGLOBIN 0.3 % (0.5-1.5); BG DEOXYHEMOGLOBIN 2.9 % (0.0-5.0); BG HCO3 ACT 20.9 mmol/L (22.0-26.0); BG METHEMOGLOBIN 0.3 % (0.0-1.5); BG OXYGEN SATURATION 97.1 % (92.0-98.5); BG OXYHEMOGLOBIN 96.5 % (94.0-97.0); BG PCO2 30.7 mmHg (35.0-45.0); BG PO2 104.7 mmHg (75.0-100.0); BG SAMPLE SITE RIGHT RADIAL; BG TOTAL HEMOGLOBIN 11.1 g/dL (12.0-18.0); BG VENT MODE VENT - SIMV; BG VENT RATE 8 set
[2019-05-25 07:48] LABS: PLATELET ESTIMATE NORMAL
[2019-05-25] MEDS: PANTOPRAZOLE SODIUM 40 MG/VIAL IV SCH (08:51)
[2019-05-25] MEDS: MIDODRINE HCL 5MG TABLET PO SCH (08:51)
[2019-05-25 09:06] LABS: ANGIOTENSION CONVERTING ENZYME 14 U/L (14-82)
[2019-05-25] MEDS ORDERED: POTASSIUM CHLORIDE 20MEQ TABLET SR PO SCH (12:00)
[2019-05-25] MEDS ORDERED: POTASSIUM CHLORIDE 20MEQ/PACKET NG SCH (12:15)
[2019-05-25 12:54] LABS: BG CARBOXYHEMOGLOBIN 0.1 % (0.5-1.5); BG CPAP (cmH2O) 0 cm(H2O); BG DEOXYHEMOGLOBIN 5.5 % (0.0-5.0); BG HCO3 ACT 20.7 mmol/L (22.0-26.0); BG METHEMOGLOBIN 0.3 % (0.0-1.5); BG OXYGEN SATURATION 94.5 % (92.0-98.5); BG OXYHEMOGLOBIN 94.1 % (94.0-97.0); BG PCO2 32.5 mmHg (35.0-45.0); BG PH 7.421 (7.350-7.450); BG PO2 71.9 mmHg (75.0-100.0); BG SAMPLE SITE LEFT RADIAL; BG TOTAL HEMOGLOBIN 11.6 g/dL (12.0-18.0); BG VENT MODE VENT - CPAP
[2019-05-25] MEDS: SODIUM CHLORIDE 0.9% 1,000 ML IV SCH (17:30)
[2019-05-25] MEDS: CEFTRIAXONE 1 G PREMIX 50 ML IV SCH (19:52)
[2019-05-25] MEDS: AZITHROMYCIN 500 MG in DEXT 5% WATER 250 ML IV SCH (21:03)
[2019-05-25] MEDS: ACETAMINOPHEN 325MG TABLET PO PRN (22:52)
[2019-05-25] MEDS: LEVOTHYROXINE SODIUM 100 MCG/ VIAL IV SCH (23:47)
[2019-05-26] VITALS (31 sets, daily range): BP systolic 123–161; BP diastolic 44–96
[2019-05-26] MEDS: IPRATROPIUM/ALBUTEROL 0.5-3(2.5)MG/3ML NEB HHN SCH ×6 (00:25→20:57)
[2019-05-26 05:55] LABS: HEMATOCRIT. 32.9 % (36.0-48.0); HEMOGLOBIN. 11.1 g/dL (12.0-16.0); MEAN CORPUSCULAR HEMOGLOBIN 29.1 pg (28.0-32.0); MEAN CORPUSCULAR VOLUME 86.4 fL (81.0-99.0); MEAN PLATELET VOLUME 8.9 fl (7.4-10.4); PLATELET 238 x1000/uL (130-400); RED CELL DISTRIBUTION WIDTH 16.6 % (11.6-14.6)
[2019-05-26 06:02] LABS: PHOSPHORUS 3.1 mg/dL (2.5-4.9)
[2019-05-26] MEDS: BLOOD SUGAR DIAGNOSTIC STRIP TEST SCH ×4 (06:18→21:06)
[2019-05-26] MEDS: METHYLPREDNISOLONE SOD SUCC 40 MG/ML VIAL IV SCH ×3 (06:21→21:12)
[2019-05-26] MEDS: INSULIN LISPRO (LOW DOSE) 100 UNITS/ML SUBCUT SCH ×4 (06:22→21:12)
[2019-05-26 07:30] LABS: BG BASE EXCESS -2.8 mmol/L (-2.0-2.0); BG CARBOXYHEMOGLOBIN 0.3 % (0.5-1.5); BG DEOXYHEMOGLOBIN 3.4 % (0.0-5.0); BG HCO3 ACT 21.4 mmol/L (22.0-26.0); BG METHEMOGLOBIN 0.3 % (0.0-1.5); BG OXYGEN SATURATION 96.6 % (92.0-98.5); BG PCO2 35.2 mmHg (35.0-45.0); BG PH 7.402 (7.350-7.450); BG PO2 93.5 mmHg (75.0-100.0); BG SAMPLE SITE RIGHT RADIAL; BG TOTAL HEMOGLOBIN 11.3 g/dL (12.0-18.0); BG VENT MODE NASAL CANNULA
[2019-05-26 07:57] LABS: PLATELET ESTIMATE NORMAL
[2019-05-26] MEDS: PANTOPRAZOLE SODIUM 40 MG/VIAL IV SCH (07:57)
[2019-05-26] MEDS: SODIUM CHLORIDE 0.9% 1,000 ML IV SCH (14:15)
[2019-05-26] MEDS: ACETYLCYSTEINE 100MG/ML 10% VIAL 4ML INH SCH (15:37)
[2019-05-26] MEDS ORDERED: LIDOCAINE HCL/PF 1% 2ML VIAL ONE (16:31)
[2019-05-26 17:08] LABS: CYC CITRULLINATED PEP IgG/IgA 5 units (0-19)
[2019-05-26] MEDS: CEFTRIAXONE 1 G PREMIX 50 ML IV SCH (19:28)
[2019-05-26] MEDS ORDERED: ZOLPIDEM TARTRATE 5MG TABLET NG PRN (20:45)
[2019-05-26] MEDS: AZITHROMYCIN 500 MG in DEXT 5% WATER 250 ML IV SCH (21:12)
[2019-05-27] VITALS (20 sets, daily range): BP systolic 118–167; BP diastolic 39–132
[2019-05-27] MEDS: LEVOTHYROXINE SODIUM 100 MCG/ VIAL IV SCH ×2 (00:09→23:57)
[2019-05-27] MEDS: ACETYLCYSTEINE 100MG/ML 10% VIAL 4ML INH SCH ×3 (00:20→15:59)
[2019-05-27] MEDS: IPRATROPIUM/ALBUTEROL 0.5-3(2.5)MG/3ML NEB HHN SCH ×6 (00:20→21:06)
[2019-05-27] MEDS: BLOOD SUGAR DIAGNOSTIC STRIP TEST SCH ×4 (05:52→21:21)
[2019-05-27 05:54] LABS: HEMATOCRIT. 33.6 % (36.0-48.0); HEMOGLOBIN. 11.2 g/dL (12.0-16.0); MEAN CORPUSCULAR HEMOGLOBIN 28.9 pg (28.0-32.0); MEAN CORPUSCULAR VOLUME 86.2 fL (81.0-99.0); MEAN PLATELET VOLUME 8.8 fl (7.4-10.4); PLATELET 230 x1000/uL (130-400); RED BLOOD CELL COUNT 3.89 mill/uL (4.2-5.4); RED CELL DISTRIBUTION WIDTH 16.5 % (11.6-14.6)
[2019-05-27] MEDS: INSULIN LISPRO (LOW DOSE) 100 UNITS/ML SUBCUT SCH ×4 (06:03→21:21)
[2019-05-27] MEDS: METHYLPREDNISOLONE SOD SUCC 40 MG/ML VIAL IV SCH ×3 (06:03→22:07)
[2019-05-27 06:27] LABS: PHOSPHORUS 2.8 mg/dL (2.5-4.9)
[2019-05-27 07:58] LABS: PLATELET ESTIMATE NORMAL
[2019-05-27] MEDS: PANTOPRAZOLE SODIUM 40 MG/VIAL IV SCH (08:31)
[2019-05-27] MEDS: FUROSEMIDE 20MG/2ML VIAL IVP SCH (11:40)
[2019-05-27 16:36] LABS: CLARITY URINE CLEAR (CLEAR); COLOR URINE YELLOW (YELLOW); KETONES URINE NEGATIVE (NEGATIVE); LEUKOCYTE ESTERASE URINE NEGATIVE (NEGATIVE); NITRITE URINE NEGATIVE (NEGATIVE); OCCULT BLOOD URINE NEGATIVE (NEGATIVE); PROTEIN URINE NEGATIVE (NEGATIVE); UROBILINOGEN URINE 0.2 E.U./dL (0.2-1.0)
[2019-05-27 17:06] LABS: ANA IFA Negative (.)
[2019-05-27] MEDS: CEFTRIAXONE 1 G PREMIX 50 ML IV SCH (21:20)
[2019-05-27] MEDS: AZITHROMYCIN 500 MG in DEXT 5% WATER 250 ML IV SCH (21:20)
[2019-05-28] VITALS (13 sets, daily range): BP systolic 116–170; BP diastolic 55–90
[2019-05-28] MEDS: ACETYLCYSTEINE 100MG/ML 10% VIAL 4ML INH SCH ×3 (00:15→17:15)
[2019-05-28] MEDS: IPRATROPIUM/ALBUTEROL 0.5-3(2.5)MG/3ML NEB HHN SCH ×6 (00:15→20:30)
[2019-05-28] MEDS: METHYLPREDNISOLONE SOD SUCC 40 MG/ML VIAL IV SCH ×3 (05:38→21:01)
[2019-05-28] MEDS: CLONIDINE 0.1MG TABLET PO PRN ×2 (05:39→16:51)
[2019-05-28 06:57] LABS: HEMATOCRIT. 34.2 % (36.0-48.0); HEMOGLOBIN. 11.3 g/dL (12.0-16.0); MEAN CORPUSCULAR VOLUME 87.6 fL (81.0-99.0); MEAN PLATELET VOLUME 8.9 fl (7.4-10.4); PLATELET 196 x1000/uL (130-400); RED CELL DISTRIBUTION WIDTH 16.8 % (11.6-14.6)
[2019-05-28] MEDS: BLOOD SUGAR DIAGNOSTIC STRIP TEST SCH ×4 (07:30→21:01)
[2019-05-28 09:04] LABS: CHLORIDE 114 mEq/L (98-107)
[2019-05-28] MEDS: PANTOPRAZOLE SODIUM 40 MG/VIAL IV SCH (09:16)
[2019-05-28] MEDS: FUROSEMIDE 20MG/2ML VIAL IVP SCH (09:16)
[2019-05-28 09:20] LABS: PHOSPHORUS 3.1 mg/dL (2.5-4.9)
[2019-05-28] MEDS: INSULIN LISPRO (LOW DOSE) 100 UNITS/ML SUBCUT SCH ×4 (09:23→21:08)
[2019-05-28] MEDS ORDERED: ALBUMIN HUMAN 25GM/100ML (25%) IV NR (10:00)
[2019-05-28] MEDS ORDERED: PAMIDRONATE DISODIUM 60 MG in SODIUM CHLORIDE 0.9% 1,000 ML IV NR (11:00)
[2019-05-28 12:12] LABS: PLATELET ESTIMATE NORMAL
[2019-05-28] MEDS ORDERED: FLUCONAZOLE 200 MG/100ML BAG 100 ML IV NR (13:00)
[2019-05-28] MEDS: MEROPENEM 500 MG in SODIUM CHLORIDE 0.9% 50 ML IV SCH (13:44)
[2019-05-28] MEDS: CHLORHEXIDINE GLUCONATE 0.12% MOUTHWASH UDC SSP SCH (16:49)
[2019-05-28] MEDS: MAGIC MOUTHWASH SSP SCH ×2 (16:50→21:07)
[2019-05-28] MEDS: ENOXAPARIN 60MG/0.6ML SYR SUBCUT SCH (16:51)
[2019-05-28] MEDS: ACETAMINOPHEN 325MG TABLET PO PRN (17:17)
[2019-05-28 17:55] LABS: TOTAL IRON BINDING CAPACITY 257 ug/dL (250-450)
[2019-05-28 19:44] LABS: VITAMIN B12 SERUM >2000 pg/mL pg/mL (211-911)
[2019-05-29] VITALS (14 sets, daily range): BP systolic 135–170; BP diastolic 60–89
[2019-05-29] MEDS: ACETYLCYSTEINE 100MG/ML 10% VIAL 4ML INH SCH ×2 (00:35→11:30)
[2019-05-29] MEDS: IPRATROPIUM/ALBUTEROL 0.5-3(2.5)MG/3ML NEB HHN SCH ×5 (00:36→20:35)
[2019-05-29] MEDS: LEVOTHYROXINE SODIUM 100 MCG/ VIAL IV SCH (00:39)
[2019-05-29] MEDS: MEROPENEM 500 MG in SODIUM CHLORIDE 0.9% 50 ML IV SCH ×2 (00:39→14:08)
[2019-05-29] MEDS: MAGIC MOUTHWASH SSP SCH ×4 (04:14→21:01)
[2019-05-29 05:08] LABS: HEMOGLOBIN. 9.4 g/dL (12.0-16.0); MEAN CORPUSCULAR HEMOGLOBIN 29.2 pg (28.0-32.0); MEAN CORPUSCULAR VOLUME 86.7 fL (81.0-99.0); MEAN PLATELET VOLUME 9.1 fl (7.4-10.4); PLATELET 146 x1000/uL (130-400); RED BLOOD CELL COUNT 3.23 mill/uL (4.2-5.4); RED CELL DISTRIBUTION WIDTH 16.6 % (11.6-14.6)
[2019-05-29 05:20] LABS: PHOSPHORUS 2.5 mg/dL (2.5-4.9)
[2019-05-29] MEDS: METHYLPREDNISOLONE SOD SUCC 40 MG/ML VIAL IV SCH ×3 (05:57→21:01)
[2019-05-29] MEDS: BLOOD SUGAR DIAGNOSTIC STRIP TEST SCH ×3 (07:30→17:45)
[2019-05-29] MEDS ORDERED: POTASSIUM CHLORIDE 20MEQ TABLET SR PO SCH (07:45)
[2019-05-29] MEDS ORDERED: FUROSEMIDE 40MG/4ML VIAL IVP SCH (09:00)
[2019-05-29] MEDS: CHLORHEXIDINE GLUCONATE 0.12% MOUTHWASH UDC SSP SCH ×4 (09:00→18:26)
[2019-05-29 09:41] LABS: PLATELET ESTIMATE NORMAL
[2019-05-29] MEDS: FUROSEMIDE 40MG/4ML VIAL IVP SCH (10:01)
[2019-05-29] MEDS: PANTOPRAZOLE SODIUM 40 MG/VIAL IV SCH (10:02)
[2019-05-29] MEDS: INSULIN LISPRO (LOW DOSE) 100 UNITS/ML SUBCUT SCH ×4 (10:03→20:54)
[2019-05-29] MEDS: FLUCONAZOLE 100MG TABLET PO SCH (10:08)
[2019-05-29] MEDS: AMLODIPINE 5MG TABLET PO SCH (12:42)
[2019-05-29] MEDS: ENOXAPARIN 60MG/0.6ML SYR SUBCUT SCH (14:09)
[2019-05-30] VITALS (10 sets, daily range): BP systolic 138–168; BP diastolic 66–89
[2019-05-30] MEDS: ACETYLCYSTEINE 100MG/ML 10% VIAL 4ML INH SCH ×3 (00:30→16:04)
[2019-05-30] MEDS: IPRATROPIUM/ALBUTEROL 0.5-3(2.5)MG/3ML NEB HHN SCH ×6 (00:30→20:21)
[2019-05-30] MEDS: MEROPENEM 500 MG in SODIUM CHLORIDE 0.9% 50 ML IV SCH ×2 (00:42→13:11)
[2019-05-30] MEDS: LEVOTHYROXINE SODIUM 100 MCG/ VIAL IV SCH (00:42)
[2019-05-30] MEDS: BLOOD SUGAR DIAGNOSTIC STRIP TEST SCH ×5 (00:42→21:46)
[2019-05-30] MEDS: MAGIC MOUTHWASH SSP SCH ×4 (04:05→22:35)
[2019-05-30] MEDS: METHYLPREDNISOLONE SOD SUCC 40 MG/ML VIAL IV SCH ×3 (05:04→18:07)
[2019-05-30 06:28] LABS: PHOSPHORUS 2.1 mg/dL (2.5-4.9)
[2019-05-30 06:33] LABS: HEMATOCRIT. 30.9 % (36.0-48.0); HEMOGLOBIN. 10.4 g/dL (12.0-16.0); MEAN CORPUSCULAR HEMOGLOBIN 29.6 pg (28.0-32.0); MEAN CORPUSCULAR VOLUME 87.5 fL (81.0-99.0); MEAN PLATELET VOLUME 9.5 fl (7.4-10.4); PLATELET 140 x1000/uL (130-400); RED BLOOD CELL COUNT 3.53 mill/uL (4.2-5.4); RED CELL DISTRIBUTION WIDTH 16.6 % (11.6-14.6)
[2019-05-30] MEDS ORDERED: POTASSIUM CHLORIDE 20MEQ/PACKET NG NR (07:15)
[2019-05-30] MEDS: CHLORHEXIDINE GLUCONATE 0.12% MOUTHWASH UDC SSP SCH ×3 (09:00→17:52)
[2019-05-30] MEDS: INSULIN LISPRO (LOW DOSE) 100 UNITS/ML SUBCUT SCH ×4 (09:00→21:46)
[2019-05-30] MEDS: FUROSEMIDE 40MG/4ML VIAL IVP SCH (09:02)
[2019-05-30] MEDS: AMLODIPINE 5MG TABLET PO SCH ×2 (09:02→21:45)
[2019-05-30] MEDS: PANTOPRAZOLE SODIUM 40 MG/VIAL IV SCH (09:02)
[2019-05-30] MEDS: FLUCONAZOLE 100MG TABLET PO SCH (09:02)
[2019-05-30 09:54] LABS: PLATELET ESTIMATE NORMAL
[2019-05-30] MEDS ORDERED: THROAT LOZENGES-BENZOCAINE/MENTH/CETYLPYRD CL LOZENGES MM PRN (11:45)
[2019-05-30] MEDS ORDERED: POTASSIUM PHOS,M-BASIC-D-BASIC 15 MMOL in DEXT 5% WATER 245 ML IV SCH (12:00)
[2019-05-30 13:06] LABS: ACTIN (SMOOTH MUSCLE) ANTIBODY 3 Units (0-19); MITOCHONDRIAL M2 AB <20.0 Units (0.0-20.0)
[2019-05-30] MEDS: ENOXAPARIN 60MG/0.6ML SYR SUBCUT SCH (13:45)
[2019-05-31] VITALS (10 sets, daily range): BP systolic 120–164; BP diastolic 67–97
[2019-05-31] MEDS: ACETYLCYSTEINE 100MG/ML 10% VIAL 4ML INH SCH ×3 (00:18→14:37)
[2019-05-31] MEDS: IPRATROPIUM/ALBUTEROL 0.5-3(2.5)MG/3ML NEB HHN SCH ×6 (00:18→21:00)
[2019-05-31] MEDS: LEVOTHYROXINE SODIUM 100 MCG/ VIAL IV SCH (00:19)
[2019-05-31] MEDS: MEROPENEM 500 MG in SODIUM CHLORIDE 0.9% 50 ML IV SCH ×2 (00:19→15:03)
[2019-05-31] MEDS: MAGIC MOUTHWASH SSP SCH ×4 (04:08→22:00)
[2019-05-31] MEDS: METHYLPREDNISOLONE SOD SUCC 40 MG/ML VIAL IV SCH ×2 (05:18→18:37)
[2019-05-31 07:30] LABS: HEMATOCRIT. 30.6 % (36.0-48.0); HEMOGLOBIN. 10.4 g/dL (12.0-16.0); MEAN CORPUSCULAR HEMOGLOBIN 29.7 pg (28.0-32.0); MEAN CORPUSCULAR VOLUME 87.5 fL (81.0-99.0); MEAN PLATELET VOLUME 10.1 fl (7.4-10.4); PLATELET 127 x1000/uL (130-400); RED CELL DISTRIBUTION WIDTH 17.6 % (11.6-14.6)
[2019-05-31] MEDS: INSULIN LISPRO (LOW DOSE) 100 UNITS/ML SUBCUT SCH ×4 (07:33→21:00)
[2019-05-31] MEDS: BLOOD SUGAR DIAGNOSTIC STRIP TEST SCH ×3 (07:33→21:00)
[2019-05-31 08:14] LABS: PHOSPHORUS 3.4 mg/dL (2.5-4.9)
[2019-05-31 08:17] LABS: T4 FREE 1.35 ng/dL (0.76-1.46)
[2019-05-31] MEDS: FLUCONAZOLE 100MG TABLET PO SCH (08:42)
[2019-05-31] MEDS: CHLORHEXIDINE GLUCONATE 0.12% MOUTHWASH UDC SSP SCH ×3 (08:42→17:00)
[2019-05-31] MEDS: AMLODIPINE 5MG TABLET PO SCH (08:42)
[2019-05-31] MEDS: INSULIN GLARGINE UD 100 UNITS/ML SYR SUBCUT SCH (09:07)
[2019-05-31] MEDS: PANTOPRAZOLE SODIUM 40 MG/VIAL IV SCH (09:08)
[2019-05-31] MEDS ORDERED: CEFAZOLIN SODIUM 1000MG/VIAL ONE (11:29)
[2019-05-31] MEDS ORDERED: MIDAZOLAM HCL 2 MG/2 ML VIAL ONE (11:29)
[2019-05-31] MEDS ORDERED: SODIUM CHLORIDE 0.9% 1,000 ML IV ONE (11:33)
[2019-05-31] MEDS ORDERED: ONDANSETRON HCL 4MG/2ML INJ IV PRN (11:45)
[2019-05-31] MEDS ORDERED: PROPOFOL 200MG/20ML VIAL IV ONE (11:50)
[2019-05-31] MEDS: DEXTROSE 5% WATER 1,000 ML IV SCH (14:46)
[2019-05-31 17:07] LABS: NUCLEATED RED BLOOD CELLS 1 /100 WBC
[2019-05-31 17:08] LABS: PLATELET ESTIMATE NORMAL
[2019-06-01] VITALS (12 sets, daily range): BP systolic 123–165; BP diastolic 61–95
[2019-06-01] MEDS: IPRATROPIUM/ALBUTEROL 0.5-3(2.5)MG/3ML NEB HHN SCH ×7 (00:56→23:41)
[2019-06-01] MEDS: AMLODIPINE 5MG TABLET PO SCH ×3 (01:24→20:58)
[2019-06-01] MEDS: DEXTROSE 5% WATER 1,000 ML IV SCH ×2 (03:54→15:42)
[2019-06-01] MEDS: LEVOTHYROXINE SODIUM 100 MCG/ VIAL IV SCH (03:55)
[2019-06-01] MEDS: MEROPENEM 500 MG in SODIUM CHLORIDE 0.9% 50 ML IV SCH ×2 (03:55→14:48)
[2019-06-01] MEDS: BLOOD SUGAR DIAGNOSTIC STRIP TEST SCH ×4 (06:50→20:58)
[2019-06-01] MEDS: METHYLPREDNISOLONE SOD SUCC 40 MG/ML VIAL IV SCH ×2 (06:58→16:30)
[2019-06-01] MEDS ORDERED: ONDANSETRON HCL 4MG/2ML INJ IV PRN (07:45)
[2019-06-01 09:04] LABS: PHOSPHORUS 2.8 mg/dL (2.5-4.9)
[2019-06-01] MEDS: CHLORHEXIDINE GLUCONATE 0.12% MOUTHWASH UDC SSP SCH ×3 (09:30→16:27)
[2019-06-01] MEDS: INSULIN LISPRO (LOW DOSE) 100 UNITS/ML SUBCUT SCH ×4 (09:30→20:58)
[2019-06-01] MEDS: PANTOPRAZOLE SODIUM 40 MG/VIAL IV SCH (09:30)
[2019-06-01] MEDS: FLUCONAZOLE 100MG TABLET PO SCH (09:30)
[2019-06-01] MEDS: INSULIN GLARGINE UD 100 UNITS/ML SYR SUBCUT SCH (09:37)
[2019-06-01 09:38] LABS: HEMATOCRIT. 29.5 % (36.0-48.0); HEMOGLOBIN. 9.8 g/dL (12.0-16.0); MEAN CORPUSCULAR HEMOGLOBIN 29.3 pg (28.0-32.0); MEAN CORPUSCULAR VOLUME 88.5 fL (81.0-99.0); MEAN PLATELET VOLUME 10.2 fl (7.4-10.4); PLATELET 82 x1000/uL (130-400); RED BLOOD CELL COUNT 3.33 mill/uL (4.2-5.4); RED CELL DISTRIBUTION WIDTH 16.9 % (11.6-14.6)
[2019-06-01 12:43] LABS: HEPATITIS B SURFACE ANTIGEN NEGATIVE
[2019-06-01 15:52] LABS: BG BASE EXCESS -3.1 mmol/L (-2.0-2.0); BG CARBOXYHEMOGLOBIN 0.3 % (0.5-1.5); BG DEOXYHEMOGLOBIN 1.1 % (0.0-5.0); BG FRACTION INSPIRED OXYGEN 44; BG METHEMOGLOBIN 0.4 % (0.0-1.5); BG OXYGEN SATURATION 98.9 % (92.0-98.5); BG OXYHEMOGLOBIN 98.2 % (94.0-97.0); BG PCO2 52.7 mmHg (35.0-45.0); BG PH 7.277 (7.350-7.450); BG SAMPLE SITE RIGHT BRACHIAL; BG TOTAL HEMOGLOBIN 11.3 g/dL (12.0-18.0)
[2019-06-01] MEDS ORDERED: FUROSEMIDE 20MG/2ML VIAL IVP NR (16:30)
[2019-06-01 16:49] LABS: BG BASE EXCESS 1.2 mmol/L (-2.0-2.0); BG BILEVEL POS AIRWAY PRESSURE 15/5; BG CARBOXYHEMOGLOBIN 0.3 % (0.5-1.5); BG DEOXYHEMOGLOBIN 4.7 % (0.0-5.0); BG FRACTION INSPIRED OXYGEN 50; BG HCO3 ACT 24.5 mmol/L (22.0-26.0); BG METHEMOGLOBIN 0.3 % (0.0-1.5); BG OXYGEN SATURATION 95.3 % (92.0-98.5); BG OXYHEMOGLOBIN 94.7 % (94.0-97.0); BG PCO2 34.1 mmHg (35.0-45.0); BG PH 7.474 (7.350-7.450); BG PO2 80.9 mmHg (75.0-100.0); BG SAMPLE SITE RIGHT BRACHIAL; BG VENT MODE MASK - BIPAP
[2019-06-01 17:25] LABS: PLATELET ESTIMATE DECREASED
[2019-06-01 18:05] LABS: BG BILEVEL POS AIRWAY PRESSURE 15/5; BG CARBOXYHEMOGLOBIN 0.3 % (0.5-1.5); BG DEOXYHEMOGLOBIN 2.3 % (0.0-5.0); BG FRACTION INSPIRED OXYGEN 50; BG HCO3 ACT 26.6 mmol/L (22.0-26.0); BG METHEMOGLOBIN 0.3 % (0.0-1.5); BG OXYGEN SATURATION 97.7 % (92.0-98.5); BG OXYHEMOGLOBIN 97.1 % (94.0-97.0); BG PCO2 37.2 mmHg (35.0-45.0); BG PH 7.473 (7.350-7.450); BG PO2 113.4 mmHg (75.0-100.0); BG SAMPLE SITE RIGHT BRACHIAL; BG TOTAL HEMOGLOBIN 10.8 g/dL (12.0-18.0); BG VENT MODE MASK - BIPAP
[2019-06-01] MEDS: MAGIC MOUTHWASH SSP SCH (22:00)
[2019-06-02] VITALS (12 sets, daily range): BP systolic 102–144; BP diastolic 55–80
[2019-06-02] MEDS: LEVOTHYROXINE SODIUM 100 MCG/ VIAL IV SCH (02:31)
[2019-06-02] MEDS: MEROPENEM 500 MG in SODIUM CHLORIDE 0.9% 50 ML IV SCH ×2 (02:31→14:12)
[2019-06-02] MEDS: IPRATROPIUM/ALBUTEROL 0.5-3(2.5)MG/3ML NEB HHN SCH ×4 (03:52→20:00)
[2019-06-02] MEDS: DEXTROSE 5% WATER 1,000 ML IV SCH (05:32)
[2019-06-02] MEDS: METHYLPREDNISOLONE SOD SUCC 40 MG/ML VIAL IV SCH ×2 (06:02→17:59)
[2019-06-02] MEDS: BLOOD SUGAR DIAGNOSTIC STRIP TEST SCH ×4 (06:23→21:00)
[2019-06-02] MEDS: CHLORHEXIDINE GLUCONATE 0.12% MOUTHWASH UDC SSP SCH ×3 (09:00→17:00)
[2019-06-02] MEDS ORDERED: FUROSEMIDE 20MG/2ML VIAL IVP SCH (09:15)
[2019-06-02] MEDS: AMLODIPINE 5MG TABLET PO SCH ×2 (10:17→21:59)
[2019-06-02] MEDS: FLUCONAZOLE 100MG TABLET PO SCH (10:17)
[2019-06-02] MEDS: PANTOPRAZOLE SODIUM 40 MG/VIAL IV SCH (10:17)
[2019-06-02] MEDS: INSULIN LISPRO (LOW DOSE) 100 UNITS/ML SUBCUT SCH ×4 (10:18→22:00)
[2019-06-02] MEDS: INSULIN GLARGINE UD 100 UNITS/ML SYR SUBCUT SCH (10:19)
[2019-06-02 10:30] LABS: HEMATOCRIT. 30.6 % (36.0-48.0); HEMOGLOBIN. 10.2 g/dL (12.0-16.0); MEAN CORPUSCULAR HEMOGLOBIN 29.1 pg (28.0-32.0); MEAN CORPUSCULAR VOLUME 87.9 fL (81.0-99.0); MEAN PLATELET VOLUME 11.6 fl (7.4-10.4); PLATELET 71 x1000/uL (130-400); RED BLOOD CELL COUNT 3.48 mill/uL (4.2-5.4); RED CELL DISTRIBUTION WIDTH 16.7 % (11.6-14.6)
[2019-06-02 12:16] LABS: PLATELET ESTIMATE DECREASED
[2019-06-02] MEDS: FUROSEMIDE 40MG/4ML VIAL IVP SCH (17:56)
[2019-06-02] MEDS: MAGIC MOUTHWASH SSP SCH (22:00)
[2019-06-03] VITALS (31 sets, daily range): BP systolic 81–153; BP diastolic 46–92
[2019-06-03] MEDS: IPRATROPIUM/ALBUTEROL 0.5-3(2.5)MG/3ML NEB HHN SCH ×6 (00:21→21:40)
[2019-06-03] MEDS: MEROPENEM 500 MG in SODIUM CHLORIDE 0.9% 50 ML IV SCH ×2 (00:30→15:52)
[2019-06-03] MEDS: LEVOTHYROXINE SODIUM 100 MCG/ VIAL IV SCH (00:30)
[2019-06-03] MEDS ORDERED: LORAZEPAM 2MG/ML CPJ IV PRN (04:45)
[2019-06-03] MEDS: METHYLPREDNISOLONE SOD SUCC 40 MG/ML VIAL IV SCH ×2 (05:36→17:00)
[2019-06-03] MEDS: BLOOD SUGAR DIAGNOSTIC STRIP TEST SCH ×4 (06:29→20:55)
[2019-06-03 07:34] LABS: HEMATOCRIT. 31.3 % (36.0-48.0); HEMOGLOBIN. 10.4 g/dL (12.0-16.0); MEAN CORPUSCULAR HEMOGLOBIN 29.2 pg (28.0-32.0); MEAN CORPUSCULAR VOLUME 87.5 fL (81.0-99.0); MEAN PLATELET VOLUME 12.2 fl (7.4-10.4); PLATELET 60 x1000/uL (130-400); RED BLOOD CELL COUNT 3.58 mill/uL (4.2-5.4); RED CELL DISTRIBUTION WIDTH 16.7 % (11.6-14.6)
[2019-06-03 07:47] LABS: PHOSPHORUS 3.3 mg/dL (2.5-4.9)
[2019-06-03] MEDS: FUROSEMIDE 40MG/4ML VIAL IVP SCH ×2 (08:05→17:00)
[2019-06-03] MEDS: AMLODIPINE 5MG TABLET PO SCH (08:05)
[2019-06-03] MEDS: PANTOPRAZOLE SODIUM 40 MG/VIAL IV SCH (08:05)
[2019-06-03] MEDS: FLUCONAZOLE 100MG TABLET PO SCH (08:05)
[2019-06-03] MEDS: INSULIN LISPRO (LOW DOSE) 100 UNITS/ML SUBCUT SCH ×4 (08:06→21:03)
[2019-06-03] MEDS: CHLORHEXIDINE GLUCONATE 0.12% MOUTHWASH UDC SSP SCH ×3 (09:00→17:00)
[2019-06-03 09:53] LABS: BG BASE EXCESS 0.6 mmol/L (-2.0-2.0); BG BILEVEL POS AIRWAY PRESSURE 15/5; BG CARBOXYHEMOGLOBIN 0.3 % (0.5-1.5); BG DEOXYHEMOGLOBIN 5.4 % (0.0-5.0); BG FRACTION INSPIRED OXYGEN 50; BG HCO3 ACT 23.5 mmol/L (22.0-26.0); BG METHEMOGLOBIN 0.1 % (0.0-1.5); BG OXYGEN SATURATION 94.6 % (92.0-98.5); BG OXYHEMOGLOBIN 94.2 % (94.0-97.0); BG PH 7.483 (7.350-7.450); BG SAMPLE SITE RIGHT BRACHIAL; BG TOTAL HEMOGLOBIN 11.9 g/dL (12.0-18.0); BG VENT MODE MASK - BIPAP
[2019-06-03] MEDS ORDERED: DILTIAZEM HCL 60MG TABLET NG SCH (10:30)
[2019-06-03] MEDS ORDERED: POTASSIUM CHLORIDE 20MEQ/PACKET NG SCH (10:30)
[2019-06-03] MEDS: INSULIN GLARGINE UD 100 UNITS/ML SYR SUBCUT SCH (10:51)
[2019-06-03] MEDS: FENTANYL CITRATE/PF 500 MCG in SODIUM CHLORIDE 0.9% 40 ML IV PRN ×2 (13:31→19:29)
[2019-06-03] MEDS: MIDAZOLAM HCL 100 MG in DEXT 5% WATER 80 ML IV PRN (13:33)
[2019-06-03 13:37] LABS: BG BASE EXCESS -1.7 mmol/L (-2.0-2.0); BG CARBOXYHEMOGLOBIN 0.3 % (0.5-1.5); BG DEOXYHEMOGLOBIN 5.2 % (0.0-5.0); BG FRACTION INSPIRED OXYGEN 100; BG HCO3 ACT 21.8 mmol/L (22.0-26.0); BG METHEMOGLOBIN 0.1 % (0.0-1.5); BG OXYGEN SATURATION 94.8 % (92.0-98.5); BG OXYHEMOGLOBIN 94.4 % (94.0-97.0); BG PCO2 32.8 mmHg (35.0-45.0); BG PO2 80.6 mmHg (75.0-100.0); BG SAMPLE SITE RIGHT BRACHIAL; BG TIDAL VOLUME(mL) 450 mL; BG TOTAL HEMOGLOBIN 11.2 g/dL (12.0-18.0); BG VENT MODE VENT - A/C; BG VENT RATE 16 set
[2019-06-03] MEDS: ASPIRIN 81MG TABLET NG SCH (14:00)
[2019-06-03 16:45] LABS: PLATELET ESTIMATE DECREASED
[2019-06-03] MEDS: DILTIAZEM HCL 60MG TABLET NG SCH (17:00)
[2019-06-03 18:01] LABS: BG CARBOXYHEMOGLOBIN 0.2 % (0.5-1.5); BG DEOXYHEMOGLOBIN 4.2 % (0.0-5.0); BG FRACTION INSPIRED OXYGEN 100; BG OXYGEN SATURATION 95.8 % (92.0-98.5); BG OXYHEMOGLOBIN 95.6 % (94.0-97.0); BG PH 7.457 (7.350-7.450); BG PO2 87.7 mmHg (75.0-100.0); BG SAMPLE SITE RIGHT BRACHIAL; BG TIDAL VOLUME(mL) 450 mL; BG TOTAL HEMOGLOBIN 10.6 g/dL (12.0-18.0); BG VENT MODE VENT - A/C; BG VENT RATE 16 set
[2019-06-03] MEDS ORDERED: VANCOMYCIN 1 G PREMIX 200 ML IV SCH (19:00)
[2019-06-03 20:54] LABS: PARTIAL THROMBOPLASTIN TIME 23.5 sec (23.4-31.0); PROTHROMBIN TIME 10.4 sec (9.6-11.0)
[2019-06-03] MEDS: MAGIC MOUTHWASH SSP SCH (22:00)
[2019-06-04] VITALS (95 sets, daily range): BP systolic 70–140; BP diastolic 33–84
[2019-06-04] MEDS: LEVOTHYROXINE SODIUM 100 MCG/ VIAL IV SCH ×2 (00:33→23:27)
[2019-06-04] MEDS: IPRATROPIUM/ALBUTEROL 0.5-3(2.5)MG/3ML NEB HHN SCH ×6 (01:20→20:47)
[2019-06-04] MEDS: MEROPENEM 500 MG in SODIUM CHLORIDE 0.9% 50 ML IV SCH (02:49)
[2019-06-04] MEDS: MAGIC MOUTHWASH SSP SCH ×4 (04:00→22:28)
[2019-06-04] MEDS: DILTIAZEM HCL 60MG TABLET NG SCH ×3 (05:09→21:24)
[2019-06-04] MEDS: BLOOD SUGAR DIAGNOSTIC STRIP TEST SCH ×4 (05:58→20:59)
[2019-06-04] MEDS: METHYLPREDNISOLONE SOD SUCC 40 MG/ML VIAL IV SCH ×2 (06:05→17:03)
[2019-06-04] MEDS: INSULIN LISPRO (LOW DOSE) 100 UNITS/ML SUBCUT SCH ×4 (06:06→21:08)
[2019-06-04] MEDS: FUROSEMIDE 40MG/4ML VIAL IVP SCH (07:19)
[2019-06-04 07:27] LABS: BG BASE EXCESS -4.3 mmol/L (-2.0-2.0); BG CARBOXYHEMOGLOBIN 0.2 % (0.5-1.5); BG DEOXYHEMOGLOBIN 1.4 % (0.0-5.0); BG FRACTION INSPIRED OXYGEN 90; BG HCO3 ACT 19.1 mmol/L (22.0-26.0); BG METHEMOGLOBIN 0.3 % (0.0-1.5); BG OXYGEN SATURATION 98.6 % (92.0-98.5); BG OXYHEMOGLOBIN 98.1 % (94.0-97.0); BG PCO2 29.6 mmHg (35.0-45.0); BG PH 7.428 (7.350-7.450); BG PO2 167.6 mmHg (75.0-100.0); BG SAMPLE SITE RIGHT BRACHIAL; BG TIDAL VOLUME(mL) 450 mL; BG TOTAL HEMOGLOBIN 10.7 g/dL (12.0-18.0); BG VENT MODE VENT - A/C; BG VENT RATE 14 set
[2019-06-04] MEDS: ASPIRIN 81MG TABLET NG SCH (08:01)
[2019-06-04] MEDS: CHLORHEXIDINE GLUCONATE 0.12% MOUTHWASH UDC SSP SCH ×2 (08:11→12:30)
[2019-06-04] MEDS: FLUCONAZOLE 100MG TABLET PO SCH (08:11)
[2019-06-04] MEDS: PANTOPRAZOLE SODIUM 40 MG/VIAL IV SCH (08:11)
[2019-06-04] MEDS: SODIUM CHLORIDE 0.45% 1,000 ML IV SCH (09:01)
[2019-06-04] MEDS: INSULIN GLARGINE UD 100 UNITS/ML SYR SUBCUT SCH (09:02)
[2019-06-04 09:46] LABS: HEMATOCRIT. 27.3 % (36.0-48.0); HEMOGLOBIN. 9.1 g/dL (12.0-16.0); MEAN CORPUSCULAR HEMOGLOBIN 29.2 pg (28.0-32.0); MEAN CORPUSCULAR VOLUME 87.7 fL (81.0-99.0); MEAN PLATELET VOLUME 12.5 fl (7.4-10.4); RED BLOOD CELL COUNT 3.11 mill/uL (4.2-5.4); RED CELL DISTRIBUTION WIDTH 16.5 % (11.6-14.6)
[2019-06-04] MEDS ORDERED: SODIUM BICARBONATE 4% (2.4MEQ) 5ML VIAL IV ONE (09:46)
[2019-06-04 10:45] LABS: PLATELET 43 x1000/uL (130-400)
[2019-06-04 14:21] LABS: PLATELET ESTIMATE MARKEDLY DECREASED
[2019-06-04] MEDS ORDERED: MEROPENEM 500 MG in SODIUM CHLORIDE 0.9% 50 ML IV SCH (17:30)
[2019-06-04] MEDS ORDERED: VANCOMYCIN 750 MG PREMIX 150 ML IV SCH ×2 (18:00→19:00)
[2019-06-04] MEDS: FENTANYL CITRATE/PF 500 MCG in SODIUM CHLORIDE 0.9% 40 ML IV PRN (19:20)
[2019-06-05] VITALS (96 sets, daily range): BP systolic 77–156; BP diastolic 28–87
[2019-06-05] MEDS: IPRATROPIUM/ALBUTEROL 0.5-3(2.5)MG/3ML NEB HHN SCH ×6 (00:25→20:37)
[2019-06-05] MEDS: NOREPINEPHRINE 32 MG in DEXT 5% WATER 468 ML IV PRN (03:42)
[2019-06-05] MEDS: MAGIC MOUTHWASH SSP SCH ×4 (04:46→22:00)
[2019-06-05] MEDS: DILTIAZEM HCL 60MG TABLET NG SCH (05:18)
[2019-06-05] MEDS: BLOOD SUGAR DIAGNOSTIC STRIP TEST SCH ×4 (06:04→21:00)
[2019-06-05] MEDS: METHYLPREDNISOLONE SOD SUCC 40 MG/ML VIAL IV SCH ×2 (06:20→17:34)
[2019-06-05] MEDS: INSULIN LISPRO (LOW DOSE) 100 UNITS/ML SUBCUT SCH ×4 (06:21→23:21)
[2019-06-05] MEDS: SODIUM CHLORIDE 0.45% 1,000 ML IV SCH (06:21)
[2019-06-05 06:28] LABS: HEMATOCRIT. 26.5 % (36.0-48.0); HEMOGLOBIN. 8.8 g/dL (12.0-16.0); MEAN CORPUSCULAR HEMOGLOBIN 29.6 pg (28.0-32.0); MEAN CORPUSCULAR VOLUME 89.2 fL (81.0-99.0); MEAN PLATELET VOLUME 11.9 fl (7.4-10.4); RED BLOOD CELL COUNT 2.97 mill/uL (4.2-5.4)
[2019-06-05 07:00] LABS: PLATELET 50 x1000/uL (130-400)
[2019-06-05 09:09] LABS: NUCLEATED RED BLOOD CELLS 2 /100 WBC; PLATELET ESTIMATE MARKEDLY DECREASED
[2019-06-05] MEDS: FLUCONAZOLE 100MG TABLET PO SCH (09:15)
[2019-06-05] MEDS: PANTOPRAZOLE SODIUM 40 MG/VIAL IV SCH (09:15)
[2019-06-05 09:17] LABS: BG BASE EXCESS -5.5 mmol/L (-2.0-2.0); BG CARBOXYHEMOGLOBIN 0.3 % (0.5-1.5); BG DEOXYHEMOGLOBIN 2.4 % (0.0-5.0); BG FRACTION INSPIRED OXYGEN 40; BG METHEMOGLOBIN 0.3 % (0.0-1.5); BG OXYGEN SATURATION 97.6 % (92.0-98.5); BG PCO2 24.9 mmHg (35.0-45.0); BG PH 7.452 (7.350-7.450); BG PO2 112.6 mmHg (75.0-100.0); BG SAMPLE SITE RIGHT RADIAL; BG TIDAL VOLUME(mL) 450 mL; BG TOTAL HEMOGLOBIN 11.3 g/dL (12.0-18.0); BG VENT MODE VENT - A/C; BG VENT RATE 14 set
[2019-06-05] MEDS: INSULIN GLARGINE UD 100 UNITS/ML SYR SUBCUT SCH ×2 (10:22→23:20)
[2019-06-05] MEDS ORDERED: ALBUMIN HUMAN 25GM/100ML (25%) IV NR (12:00)
[2019-06-05] MEDS ORDERED: FUROSEMIDE 100MG/10ML VIAL IVP NR (17:15)
[2019-06-05] MEDS: FENTANYL CITRATE/PF 500 MCG in SODIUM CHLORIDE 0.9% 40 ML IV PRN (17:35)
[2019-06-05] MEDS: MIDAZOLAM HCL 100 MG in DEXT 5% WATER 80 ML IV PRN (17:36)
[2019-06-05] MEDS: LEVOTHYROXINE SODIUM 100 MCG/ VIAL IV SCH (23:29)
[2019-06-06] VITALS (87 sets, daily range): BP systolic 90–159; BP diastolic 28–78
[2019-06-06] MEDS: IPRATROPIUM/ALBUTEROL 0.5-3(2.5)MG/3ML NEB HHN SCH ×6 (00:11→20:35)
[2019-06-06] MEDS: MAGIC MOUTHWASH SSP SCH ×4 (04:00→21:43)
[2019-06-06 05:48] LABS: HEMATOCRIT. 21.8 % (36.0-48.0); HEMOGLOBIN. 7.3 g/dL (12.0-16.0); MEAN CORPUSCULAR HEMOGLOBIN 29.2 pg (28.0-32.0); MEAN CORPUSCULAR VOLUME 87.5 fL (81.0-99.0); MEAN PLATELET VOLUME 12.8 fl (7.4-10.4); RED CELL DISTRIBUTION WIDTH 16.7 % (11.6-14.6)
[2019-06-06 06:25] LABS: CHLORIDE 109 mEq/L (98-107)
[2019-06-06 06:35] LABS: PLATELET 38 x1000/uL (130-400)
[2019-06-06 06:40] LABS: PHOSPHORUS 6.2 mg/dL (2.5-4.9)
[2019-06-06] MEDS: INSULIN LISPRO (LOW DOSE) 100 UNITS/ML SUBCUT SCH ×4 (07:07→21:40)
[2019-06-06] MEDS: BLOOD SUGAR DIAGNOSTIC STRIP TEST SCH ×4 (07:09→21:41)
[2019-06-06] MEDS: METHYLPREDNISOLONE SOD SUCC 40 MG/ML VIAL IV SCH ×2 (07:11→18:37)
[2019-06-06 07:36] LABS: NUCLEATED RED BLOOD CELLS 2 /100 WBC; PLATELET ESTIMATE MARKEDLY DECREASED
[2019-06-06 07:39] LABS: BG BASE EXCESS -7.9 mmol/L (-2.0-2.0); BG CARBOXYHEMOGLOBIN 0.3 % (0.5-1.5); BG DEOXYHEMOGLOBIN 2.7 % (0.0-5.0); BG FRACTION INSPIRED OXYGEN 40; BG HCO3 ACT 15.2 mmol/L (22.0-26.0); BG METHEMOGLOBIN 0.3 % (0.0-1.5); BG OXYGEN SATURATION 97.3 % (92.0-98.5); BG OXYHEMOGLOBIN 96.7 % (94.0-97.0); BG PCO2 22.4 mmHg (35.0-45.0); BG PH 7.449 (7.350-7.450); BG PO2 111.3 mmHg (75.0-100.0); BG SAMPLE SITE RIGHT RADIAL; BG TIDAL VOLUME(mL) 450 mL; BG TOTAL HEMOGLOBIN 6.9 g/dL (12.0-18.0); BG VENT MODE VENT - A/C; BG VENT RATE 14 set
[2019-06-06] MEDS ORDERED: FLUCONAZOLE 100MG TABLET NG SCH (09:45)
[2019-06-06] MEDS ORDERED: MEROPENEM 500 MG in SODIUM CHLORIDE 0.9% 50 ML IV SCH (10:00)
[2019-06-06] MEDS: PANTOPRAZOLE SODIUM 40 MG/VIAL IV SCH (10:22)
[2019-06-06] MEDS: MEROPENEM 500MG in NORMAL SALINE 50ML IV SCH (11:53)
[2019-06-06] MEDS ORDERED: LIDOCAINE HCL 1% 20ML VIAL (Pyxis) INJ ONE (13:32)
[2019-06-06] MEDS ORDERED: HEPARIN 1000 UNITS/ML 10ML ONE (13:33)
[2019-06-06] MEDS: INSULIN GLARGINE UD 100 UNITS/ML SYR SUBCUT SCH ×2 (14:37→21:42)
[2019-06-06] MEDS: FENTANYL CITRATE/PF 500 MCG in SODIUM CHLORIDE 0.9% 40 ML IV PRN (18:38)
[2019-06-07] VITALS (86 sets, daily range): BP systolic 84–156; BP diastolic 38–69
[2019-06-07] MEDS: IPRATROPIUM/ALBUTEROL 0.5-3(2.5)MG/3ML NEB HHN SCH ×6 (00:03→21:03)
[2019-06-07] MEDS: LEVOTHYROXINE SODIUM 100 MCG/ VIAL IV SCH (00:22)
[2019-06-07] MEDS: MAGIC MOUTHWASH SSP SCH ×5 (04:00→21:59)
[2019-06-07] MEDS: MIDAZOLAM HCL 100 MG in DEXT 5% WATER 80 ML IV PRN (05:38)
[2019-06-07] MEDS: BLOOD SUGAR DIAGNOSTIC STRIP TEST SCH ×5 (05:39→23:43)
[2019-06-07] MEDS: METHYLPREDNISOLONE SOD SUCC 40 MG/ML VIAL IV SCH ×2 (05:41→18:34)
[2019-06-07] MEDS: INSULIN LISPRO (LOW DOSE) 100 UNITS/ML SUBCUT SCH ×4 (06:18→21:43)
[2019-06-07 06:30] LABS: PHOSPHORUS 5.3 mg/dL (2.5-4.9)
[2019-06-07 08:41] LABS: BG BASE EXCESS -3.7 mmol/L (-2.0-2.0); BG CARBOXYHEMOGLOBIN 0.3 % (0.5-1.5); BG FRACTION INSPIRED OXYGEN 40; BG HCO3 ACT 19.6 mmol/L (22.0-26.0); BG METHEMOGLOBIN 0.3 % (0.0-1.5); BG OXYHEMOGLOBIN 92.4 % (94.0-97.0); BG PCO2 29.4 mmHg (35.0-45.0); BG PH 7.442 (7.350-7.450); BG PO2 69.2 mmHg (75.0-100.0); BG SAMPLE SITE RIGHT RADIAL; BG TIDAL VOLUME(mL) 450 mL; BG TOTAL HEMOGLOBIN 9.5 g/dL (12.0-18.0); BG VENT MODE VENT - A/C; BG VENT RATE 14 set
[2019-06-07 09:56] LABS: HEMATOCRIT. 28.6 % (36.0-48.0); MEAN CORPUSCULAR HEMOGLOBIN 30.2 pg (28.0-32.0); MEAN CORPUSCULAR VOLUME 86.6 fL (81.0-99.0); MEAN PLATELET VOLUME 12.3 fl (7.4-10.4); RED BLOOD CELL COUNT 3.31 mill/uL (4.2-5.4); RED CELL DISTRIBUTION WIDTH 15.8 % (11.6-14.6)
[2019-06-07] MEDS: PANTOPRAZOLE SODIUM 40 MG/VIAL IV SCH (09:59)
[2019-06-07] MEDS: INSULIN GLARGINE UD 100 UNITS/ML SYR SUBCUT SCH (10:00)
[2019-06-07 10:11] LABS: PLATELET 36 x1000/uL (130-400)
[2019-06-07 11:08] LABS: NUCLEATED RED BLOOD CELLS 2 /100 WBC; PLATELET ESTIMATE MARKEDLY DECREASED
[2019-06-07] MEDS: MEROPENEM 500MG in NORMAL SALINE 50ML IV SCH (12:11)
[2019-06-07] MEDS: FENTANYL CITRATE/PF 500 MCG in SODIUM CHLORIDE 0.9% 40 ML IV PRN (12:14)
[2019-06-07] MEDS ORDERED: INSULIN GLARGINE UD 100 UNITS/ML SYR SUBCUT SCH (22:00)
[2019-06-07] MEDS ORDERED: METHYLPREDNISOLONE SOD SUCC 125 MG/2 ML VIAL IV NR (23:15)
[2019-06-08] VITALS (99 sets, daily range): BP systolic 61–213; BP diastolic 27–93
[2019-06-08] MEDS: LEVOTHYROXINE SODIUM 100 MCG/ VIAL IV SCH (00:05)
[2019-06-08] MEDS: INSULIN LISPRO 100 UNITS/ML SUBCUT SCH ×4 (00:06→17:18)
[2019-06-08] MEDS: IPRATROPIUM/ALBUTEROL 0.5-3(2.5)MG/3ML NEB HHN SCH ×6 (01:04→20:28)
[2019-06-08] MEDS: MAGIC MOUTHWASH SSP SCH ×4 (03:36→22:27)
[2019-06-08] MEDS: BLOOD SUGAR DIAGNOSTIC STRIP TEST SCH ×3 (06:13→17:18)
[2019-06-08] MEDS: METHYLPREDNISOLONE SOD SUCC 40 MG/ML VIAL IV SCH ×2 (06:14→17:17)
[2019-06-08 06:29] LABS: HEMATOCRIT. 29.7 % (36.0-48.0); HEMOGLOBIN. 10.2 g/dL (12.0-16.0); MEAN CORPUSCULAR HEMOGLOBIN 30.1 pg (28.0-32.0); MEAN CORPUSCULAR VOLUME 87.7 fL (81.0-99.0); MEAN PLATELET VOLUME 13.7 fl (7.4-10.4); RED BLOOD CELL COUNT 3.38 mill/uL (4.2-5.4); RED CELL DISTRIBUTION WIDTH 15.9 % (11.6-14.6)
[2019-06-08 06:32] LABS: PLATELET 29 x1000/uL (130-400)
[2019-06-08 06:42] LABS: PHOSPHORUS 6.3 mg/dL (2.5-4.9)
[2019-06-08 07:45] LABS: BG BASE EXCESS -4.7 mmol/L (-2.0-2.0); BG CARBOXYHEMOGLOBIN 0.3 % (0.5-1.5); BG DEOXYHEMOGLOBIN 3.7 % (0.0-5.0); BG HCO3 ACT 19.2 mmol/L (22.0-26.0); BG METHEMOGLOBIN 0.3 % (0.0-1.5); BG OXYGEN SATURATION 96.3 % (92.0-98.5); BG OXYHEMOGLOBIN 95.7 % (94.0-97.0); BG PCO2 31.6 mmHg (35.0-45.0); BG PH 7.402 (7.350-7.450); BG PO2 96.3 mmHg (75.0-100.0); BG SAMPLE SITE RIGHT BRACHIAL; BG TIDAL VOLUME(mL) 450 mL; BG TOTAL HEMOGLOBIN 10.6 g/dL (12.0-18.0); BG VENT MODE VENT - A/C; BG VENT RATE 14 set
[2019-06-08] MEDS: PANTOPRAZOLE SODIUM 40 MG/VIAL IV SCH (08:31)
[2019-06-08] MEDS ORDERED: ALBUMIN HUMAN 25GM/100ML (25%) IV ONE (09:30)
[2019-06-08] MEDS ORDERED: METHYLPREDNISOLONE SOD SUCC 40 MG/ML VIAL IV SCH (10:00)
[2019-06-08] MEDS: PHENYLEPHRINE 40 MG in DEXT 5% WATER 246 ML IV PRN (10:27)
[2019-06-08] MEDS: MEROPENEM 500MG in NORMAL SALINE 50ML IV SCH (12:58)
[2019-06-08] MEDS: INSULIN GLARGINE UD 100 UNITS/ML SYR SUBCUT SCH ×2 (12:58→22:28)
[2019-06-08] MEDS: NOREPINEPHRINE 32 MG in DEXT 5% WATER 468 ML IV PRN (13:22)
[2019-06-08] MEDS: MIDAZOLAM HCL 100 MG in DEXT 5% WATER 80 ML IV PRN (16:49)
[2019-06-08 16:55] LABS: NUCLEATED RED BLOOD CELLS 8 /100 WBC; PLATELET ESTIMATE MARKEDLY DECREASED
[2019-06-08 17:23] LABS: TOTAL IRON BINDING CAPACITY 122 ug/dL (250-450)
[2019-06-08 17:51] LABS: HEPATITIS B SURFACE ANTIGEN NEGATIVE
[2019-06-08 18:21] LABS: HEPATITIS A AB IGM NEGATIVE (NEGATIVE)
[2019-06-09] VITALS (101 sets, daily range): BP systolic 85–134; BP diastolic 38–62
[2019-06-09] MEDS: LEVOTHYROXINE SODIUM 100 MCG/ VIAL IV SCH ×2 (00:22→23:56)
[2019-06-09] MEDS: INSULIN LISPRO 100 UNITS/ML SUBCUT SCH ×5 (00:25→23:41)
[2019-06-09] MEDS: IPRATROPIUM/ALBUTEROL 0.5-3(2.5)MG/3ML NEB HHN SCH ×6 (00:55→21:31)
[2019-06-09] MEDS: FENTANYL CITRATE/PF 500 MCG in SODIUM CHLORIDE 0.9% 40 ML IV PRN (03:19)
[2019-06-09] MEDS: METHYLPREDNISOLONE SOD SUCC 40 MG/ML VIAL IV SCH ×2 (05:23→18:25)
[2019-06-09 05:30] LABS: HEMATOCRIT. 33.3 % (36.0-48.0); HEMOGLOBIN. 11.3 g/dL (12.0-16.0); MEAN CORPUSCULAR HEMOGLOBIN 29.8 pg (28.0-32.0); MEAN CORPUSCULAR VOLUME 87.8 fL (81.0-99.0); RED BLOOD CELL COUNT 3.79 mill/uL (4.2-5.4); RED CELL DISTRIBUTION WIDTH 16.1 % (11.6-14.6)
[2019-06-09] MEDS: MAGIC MOUTHWASH SSP SCH ×4 (05:33→21:51)
[2019-06-09] MEDS: BLOOD SUGAR DIAGNOSTIC STRIP TEST SCH ×5 (05:33→23:40)
[2019-06-09 05:43] LABS: PHOSPHORUS 5.2 mg/dL (2.5-4.9)
[2019-06-09 06:20] LABS: PLATELET 14 x1000/uL (130-400)
[2019-06-09] MEDS: PANTOPRAZOLE SODIUM 40 MG/VIAL IV SCH (08:04)
[2019-06-09 08:16] LABS: BG BASE EXCESS -4.4 mmol/L (-2.0-2.0); BG CARBOXYHEMOGLOBIN 0.2 % (0.5-1.5); BG DEOXYHEMOGLOBIN 4.3 % (0.0-5.0); BG HCO3 ACT 18.1 mmol/L (22.0-26.0); BG METHEMOGLOBIN 0.3 % (0.0-1.5); BG OXYGEN SATURATION 95.7 % (92.0-98.5); BG OXYHEMOGLOBIN 95.2 % (94.0-97.0); BG PCO2 25.1 mmHg (35.0-45.0); BG PH 7.477 (7.350-7.450); BG PO2 84.2 mmHg (75.0-100.0); BG SAMPLE SITE RIGHT BRACHIAL; BG TIDAL VOLUME(mL) 450 mL; BG TOTAL HEMOGLOBIN 9.1 g/dL (12.0-18.0); BG VENT MODE VENT - A/C; BG VENT RATE 14 set
[2019-06-09] MEDS: INSULIN GLARGINE UD 100 UNITS/ML SYR SUBCUT SCH ×2 (09:26→21:52)
[2019-06-09 10:39] LABS: NUCLEATED RED BLOOD CELLS 6 /100 WBC; PLATELET ESTIMATE MARKEDLY DECREASED
[2019-06-09] MEDS: MEROPENEM 500MG in NORMAL SALINE 50ML IV SCH (11:46)
[2019-06-09] MEDS: LACTULOSE 20G/30ML UDC PO SCH ×2 (13:19→21:51)
[2019-06-09] MEDS: MIDAZOLAM HCL 100 MG in DEXT 5% WATER 80 ML IV PRN (16:41)
[2019-06-10] VITALS (101 sets, daily range): BP systolic 78–189; BP diastolic 38–97
[2019-06-10] MEDS: FENTANYL CITRATE/PF 500 MCG in SODIUM CHLORIDE 0.9% 40 ML IV PRN ×2 (00:08→16:16)
[2019-06-10] MEDS: IPRATROPIUM/ALBUTEROL 0.5-3(2.5)MG/3ML NEB HHN SCH ×6 (00:49→21:06)
[2019-06-10] MEDS: MAGIC MOUTHWASH SSP SCH ×4 (04:25→21:49)
[2019-06-10 05:48] LABS: HEMOGLOBIN. 8.1 g/dL (12.0-16.0); MEAN CORPUSCULAR VOLUME 88.4 fL (81.0-99.0); MEAN PLATELET VOLUME 10.1 fl (7.4-10.4); PLATELET 90 x1000/uL (130-400); RED BLOOD CELL COUNT 2.71 mill/uL (4.2-5.4); RED CELL DISTRIBUTION WIDTH 16.1 % (11.6-14.6)
[2019-06-10] MEDS: LACTULOSE 20G/30ML UDC PO SCH (06:10)
[2019-06-10 06:11] LABS: PHOSPHORUS 7.8 mg/dL (2.5-4.9)
[2019-06-10] MEDS: METHYLPREDNISOLONE SOD SUCC 40 MG/ML VIAL IV SCH ×2 (06:11→17:31)
[2019-06-10] MEDS: BLOOD SUGAR DIAGNOSTIC STRIP TEST SCH ×3 (06:11→17:15)
[2019-06-10] MEDS: INSULIN LISPRO 100 UNITS/ML SUBCUT SCH ×3 (06:12→17:31)
[2019-06-10] MEDS: PANTOPRAZOLE SODIUM 40 MG/VIAL IV SCH (08:21)
[2019-06-10 08:52] LABS: BG BASE EXCESS -6.8 mmol/L (-2.0-2.0); BG CARBOXYHEMOGLOBIN 0.3 % (0.5-1.5); BG DEOXYHEMOGLOBIN 2.8 % (0.0-5.0); BG FRACTION INSPIRED OXYGEN 40; BG HCO3 ACT 16.7 mmol/L (22.0-26.0); BG METHEMOGLOBIN 0.2 % (0.0-1.5); BG OXYGEN SATURATION 97.2 % (92.0-98.5); BG OXYHEMOGLOBIN 96.7 % (94.0-97.0); BG PCO2 26.8 mmHg (35.0-45.0); BG PH 7.413 (7.350-7.450); BG PO2 105.1 mmHg (75.0-100.0); BG SAMPLE SITE RIGHT BRACHIAL; BG TIDAL VOLUME(mL) 450 mL; BG TOTAL HEMOGLOBIN 9.6 g/dL (12.0-18.0); BG VENT MODE VENT - A/C; BG VENT RATE 14 set
[2019-06-10] MEDS: INSULIN GLARGINE UD 100 UNITS/ML SYR SUBCUT SCH ×2 (09:20→21:49)
[2019-06-10 10:11] LABS: NUCLEATED RED BLOOD CELLS 2 /100 WBC; PLATELET ESTIMATE DECREASED
[2019-06-10] MEDS: MEROPENEM 500MG in NORMAL SALINE 50ML IV SCH (12:13)
[2019-06-10] MEDS: NOREPINEPHRINE 32 MG in DEXT 5% WATER 468 ML IV PRN (12:14)
[2019-06-11] VITALS (95 sets, daily range): BP systolic 60–147; BP diastolic 24–116
[2019-06-11] MEDS: BLOOD SUGAR DIAGNOSTIC STRIP TEST SCH ×5 (00:48→23:59)
[2019-06-11] MEDS: INSULIN LISPRO 100 UNITS/ML SUBCUT SCH ×5 (00:48→23:59)
[2019-06-11] MEDS: LEVOTHYROXINE SODIUM 100 MCG/ VIAL IV SCH ×2 (00:52→23:59)
[2019-06-11] MEDS: IPRATROPIUM/ALBUTEROL 0.5-3(2.5)MG/3ML NEB HHN SCH ×6 (00:56→20:31)
[2019-06-11] MEDS: MAGIC MOUTHWASH SSP SCH ×4 (03:41→23:58)
[2019-06-11] MEDS: FENTANYL CITRATE/PF 500 MCG in SODIUM CHLORIDE 0.9% 40 ML IV PRN (03:43)
[2019-06-11] MEDS: METHYLPREDNISOLONE SOD SUCC 40 MG/ML VIAL IV SCH ×2 (05:38→17:44)
[2019-06-11 07:43] LABS: BG BASE EXCESS -5.6 mmol/L (-2.0-2.0); BG CARBOXYHEMOGLOBIN 0.3 % (0.5-1.5); BG DEOXYHEMOGLOBIN 10.1 % (0.0-5.0); BG FRACTION INSPIRED OXYGEN 40; BG HCO3 ACT 19.1 mmol/L (22.0-26.0); BG METHEMOGLOBIN 0.3 % (0.0-1.5); BG OXYGEN SATURATION 89.8 % (92.0-98.5); BG OXYHEMOGLOBIN 89.3 % (94.0-97.0); BG PCO2 34.3 mmHg (35.0-45.0); BG PH 7.364 (7.350-7.450); BG PO2 62.1 mmHg (75.0-100.0); BG SAMPLE SITE RIGHT BRACHIAL; BG TIDAL VOLUME(mL) 450 mL; BG TOTAL HEMOGLOBIN 8.5 g/dL (12.0-18.0); BG VENT MODE VENT - A/C; BG VENT RATE 14 set
[2019-06-11] MEDS: PANTOPRAZOLE SODIUM 40 MG/VIAL IV SCH (08:25)
[2019-06-11 09:33] LABS: PHOSPHORUS 7.7 mg/dL (2.5-4.9)
[2019-06-11] MEDS ORDERED: LOPERAMIDE HCL 1 MG/7.5 ML 240ML BOTTLE PO PRN (10:00)
[2019-06-11] MEDS: INSULIN GLARGINE UD 100 UNITS/ML SYR SUBCUT SCH ×2 (10:01→21:42)
[2019-06-11] MEDS: MEROPENEM 500MG in NORMAL SALINE 50ML IV SCH (12:16)
[2019-06-11] MEDS: ACETAMINOPHEN 325MG TABLET PO PRN (12:34)
[2019-06-11 12:51] LABS: HEMATOCRIT. 24.3 % (36.0-48.0); HEMOGLOBIN. 8.2 g/dL (12.0-16.0); MEAN CORPUSCULAR VOLUME 89.2 fL (81.0-99.0); MEAN PLATELET VOLUME 11.8 fl (7.4-10.4); RED BLOOD CELL COUNT 2.73 mill/uL (4.2-5.4)
[2019-06-11 13:01] LABS: PLATELET 35 x1000/uL (130-400)
[2019-06-11 14:30] LABS: NUCLEATED RED BLOOD CELLS 10 /100 WBC; PLATELET ESTIMATE MARKEDLY DECREASED
[2019-06-12] VITALS (82 sets, daily range): BP systolic 36–176; BP diastolic 15–87
[2019-06-12] MEDS: IPRATROPIUM/ALBUTEROL 0.5-3(2.5)MG/3ML NEB HHN SCH ×4 (00:36→17:31)
[2019-06-12] MEDS: FENTANYL CITRATE/PF 500 MCG in SODIUM CHLORIDE 0.9% 40 ML IV PRN ×2 (01:07→16:58)
[2019-06-12] MEDS: INSULIN LISPRO 100 UNITS/ML SUBCUT SCH ×3 (06:00→17:37)
[2019-06-12 06:21] LABS: HEMATOCRIT. 23.3 % (36.0-48.0); MEAN CORPUSCULAR HEMOGLOBIN 30.4 pg (28.0-32.0); MEAN CORPUSCULAR VOLUME 88.1 fL (81.0-99.0); MEAN PLATELET VOLUME 13.6 fl (7.4-10.4); RED BLOOD CELL COUNT 2.64 mill/uL (4.2-5.4); RED CELL DISTRIBUTION WIDTH 16.1 % (11.6-14.6)
[2019-06-12] MEDS: BLOOD SUGAR DIAGNOSTIC STRIP TEST SCH ×3 (06:52→17:37)
[2019-06-12 07:10] LABS: PHOSPHORUS 8.8 mg/dL (2.5-4.9)
[2019-06-12] MEDS: METHYLPREDNISOLONE SOD SUCC 40 MG/ML VIAL IV SCH ×2 (07:24→17:02)
[2019-06-12] MEDS: MAGIC MOUTHWASH SSP SCH ×4 (07:25→22:00)
[2019-06-12 07:27] LABS: PLATELET 29 x1000/uL (130-400)
[2019-06-12] MEDS: PANTOPRAZOLE SODIUM 40 MG/VIAL IV SCH (08:17)
[2019-06-12 08:48] LABS: BG BASE EXCESS -8.6 mmol/L (-2.0-2.0); BG CARBOXYHEMOGLOBIN 0.3 % (0.5-1.5); BG DEOXYHEMOGLOBIN 3.9 % (0.0-5.0); BG FRACTION INSPIRED OXYGEN 50; BG HCO3 ACT 14.3 mmol/L (22.0-26.0); BG METHEMOGLOBIN 0.2 % (0.0-1.5); BG OXYGEN SATURATION 96.1 % (92.0-98.5); BG OXYHEMOGLOBIN 95.6 % (94.0-97.0); BG PCO2 22.6 mmHg (35.0-45.0); BG PH 7.418 (7.350-7.450); BG PO2 92.4 mmHg (75.0-100.0); BG SAMPLE SITE LEFT BRACHIAL; BG TIDAL VOLUME(mL) 450 mL; BG TOTAL HEMOGLOBIN 10.9 g/dL (12.0-18.0); BG VENT MODE VENT - A/C; BG VENT RATE 14 set
[2019-06-12] MEDS: INSULIN GLARGINE UD 100 UNITS/ML SYR SUBCUT SCH ×2 (09:17→22:00)
[2019-06-12 11:18] LABS: NUCLEATED RED BLOOD CELLS 9 /100 WBC
[2019-06-12 11:19] LABS: PLATELET ESTIMATE MARKEDLY DECREASED
[2019-06-12] MEDS ORDERED: LOPERAMIDE HCL 2MG CAPSULE PO PRN (13:00)
[2019-06-12] MEDS: PHENYLEPHRINE 40 MG in DEXT 5% WATER 246 ML IV PRN (13:53)
[2019-06-12] MEDS: MEROPENEM 500MG in NORMAL SALINE 50ML IV SCH (14:30)
== END 2019-06-12 23:00 | disposition expired | DRG 710 ==
LOC: ER 12:35 → 5WST 16:32 → EDBEDREQ 16:34 → ENRESERV 23:17 → MICUSO 05-21 13:10 → 5EST 05-28 01:50 → 3WST 05-31 12:57 → MICUNO 06-03 12:12
PROVIDERS: ADMIT Internal Medicine; ATTEND Internal Medicine
PROC: 5A1955Z Respiratory Ventilation, Greater than 96 Consecutive Hours (ICD-10-PCS; principal; 2019-05-21)
PROC: 02H63JZ Insertion of Pacemaker Lead into Right Atrium, Percutaneous Approach (ICD-10-PCS; 2019-05-21)
PROC: B5171ZZ Fluoroscopy of Left Subclavian Vein using Low Osmolar Contrast (ICD-10-PCS; 2019-05-21)
PROC: 0JH606Z Insertion of Pacemaker, Dual Chamber into Chest Subcutaneous Tissue and Fascia, Open Approach (ICD-10-PCS; 2019-05-21)
PROC: 02HK3JZ Insertion of Pacemaker Lead into Right Ventricle, Percutaneous Approach (ICD-10-PCS; 2019-05-21)
PROC: 0BH17EZ Insertion of Endotracheal Airway into Trachea, Via Natural or Artificial Opening (ICD-10-PCS; 2019-05-21)
PROC: 02HV33Z Insertion of Infusion Device into Superior Vena Cava, Percutaneous Approach (ICD-10-PCS; 2019-05-21)
PROC: B548ZZA Ultrasonography of Superior Vena Cava, Guidance (ICD-10-PCS; 2019-05-21)
PROC: 0W9B3ZZ Drainage of Left Pleural Cavity, Percutaneous Approach (ICD-10-PCS; 2019-05-22)
PROC: 0BH17EZ Insertion of Endotracheal Airway into Trachea, Via Natural or Artificial Opening (ICD-10-PCS; 2019-06-03)
PROC: 0W9B3ZZ Drainage of Left Pleural Cavity, Percutaneous Approach (ICD-10-PCS; 2019-06-04)
PROC: 02HV33Z Insertion of Infusion Device into Superior Vena Cava, Percutaneous Approach (ICD-10-PCS; 2019-06-06)
PROC: B548ZZA Ultrasonography of Superior Vena Cava, Guidance (ICD-10-PCS; 2019-06-06)
PROC: 30233R1 Transfusion of Nonautologous Platelets into Peripheral Vein, Percutaneous Approach (ICD-10-PCS; 2019-06-06)
PROC: 30233N1 Transfusion of Nonautologous Red Blood Cells into Peripheral Vein, Percutaneous Approach (ICD-10-PCS; 2019-06-06)
PROC: 5A1D70Z Performance of Urinary Filtration, Intermittent, Less than 6 Hours Per Day (ICD-10-PCS; 2019-06-06)
PROC: 5A1D70Z Performance of Urinary Filtration, Intermittent, Less than 6 Hours Per Day (ICD-10-PCS; 2019-06-08)
PROC: 5A1D70Z Performance of Urinary Filtration, Intermittent, Less than 6 Hours Per Day (ICD-10-PCS; 2019-06-10)
PROC: 5A1D70Z Performance of Urinary Filtration, Intermittent, Less than 6 Hours Per Day (ICD-10-PCS; 2019-06-12)
DX: A41.9 Sepsis, unspecified organism (principal); J96.01 Acute respiratory failure with hypoxia; N17.0 Acute kidney failure with tubular necrosis; D65 Disseminated intravascular coagulation [defibrination syndrome]; K72.00 Acute and subacute hepatic failure without coma; E43 Unspecified severe protein-calorie malnutrition; J18.9 Pneumonia, unspecified organism; D61.818 Other pancytopenia; I44.2 Atrioventricular block, complete; N18.6 End stage renal disease; R65.21 Severe sepsis with septic shock; I11.0 Hypertensive heart disease with heart failure; G93.41 Metabolic encephalopathy; J44.0 Chronic obstructive pulmonary disease with (acute) lower respiratory infection; E87.8 Other disorders of electrolyte and fluid balance, not elsewhere classified; I27.29 Other secondary pulmonary hypertension; E11.9 Type 2 diabetes mellitus without complications; E87.1 Hypo-osmolality and hyponatremia; E78.5 Hyperlipidemia, unspecified; E03.9 Hypothyroidism, unspecified; D86.0 Sarcoidosis of lung; E78.00 Pure hypercholesterolemia, unspecified; E83.51 Hypocalcemia; E87.2 Acidosis; E87.6 Hypokalemia; I13.0 Hypertensive heart and chronic kidney disease with heart failure and stage 1 through stage 4 chronic kidney disease, or unspecified chronic kidney disease; I25.10 Atherosclerotic heart disease of native coronary artery without angina pectoris; K80.20 Calculus of gallbladder without cholecystitis without obstruction; E05.90 Thyrotoxicosis, unspecified without thyrotoxic crisis or storm; H70.10 Chronic mastoiditis, unspecified ear; E23.0 Hypopituitarism; E83.52 Hypercalcemia; T38.0X5A Adverse effect of glucocorticoids and synthetic analogues, initial encounter; S30.23XA Contusion of vagina and vulva, initial encounter; X58.XXXA Exposure to other specified factors, initial encounter; S71.112A Laceration without foreign body, left thigh, initial encounter; S71.111A Laceration without foreign body, right thigh, initial encounter; I34.0 Nonrheumatic mitral (valve) insufficiency; E66.9 Obesity, unspecified; I48.91 Unspecified atrial fibrillation; I48.92 Unspecified atrial flutter; I50.9 Heart failure, unspecified; Z66 Do not resuscitate; I49.5 Sick sinus syndrome; R13.10 Dysphagia, unspecified; I46.9 Cardiac arrest, cause unspecified; E87.0 Hyperosmolality and hypernatremia; E11.65 Type 2 diabetes mellitus with hyperglycemia; E11.22 Type 2 diabetes mellitus with diabetic chronic kidney disease; B37.49 Other urogenital candidiasis; Z78.1 Physical restraint status; Z79.4 Long term (current) use of insulin; Z79.52 Long term (current) use of systemic steroids; Z82.0 Family history of epilepsy and other diseases of the nervous system; Z82.49 Family history of ischemic heart disease and other diseases of the circulatory system; Z83.3 Family history of diabetes mellitus; Z79.899 Other long term (current) drug therapy; Z68.28 Body mass index [BMI] 28.0-28.9, adult; Z79.84 Long term (current) use of oral hypoglycemic drugs; Y92.89 Other specified places as the place of occurrence of the external cause; Y93.89 Activity, other specified; Y99.8 Other external cause status
CPT/HCPCS: 32555; 33208; 36415; 36600; 71045; 71250; 74018; 75820; 76700; 76937; 78580; 80048; 80053; 80202; 81003; 82140; 82164; 82270; 82375; 82533; 82550; 82607; 82746; 82805; 82962; 83516; 83540; 83550; 83735; 83880; 83935; 83970; 84100; 84134; 84145; 84300; 84439; 84443; 84450; 84460; 84478; 84481; 84484; 85025; 85362; 85379; 85384; 86022; 86160; 86200; 86225; 86256; 86431; 86703; 86705; 86709; 86803; 86850; 86870; 86900; 86920; 86945; 87070; 87340; 92610; 93005; 93306; 94002; 94003; 94640; 94667; 96365; 97162; 97166; 97530; 99291; A6261; C1725; C1752; C1785; C1893; C1898; C9113; J0456; J0690; J0696; J1265; J1450; J1644; J1650; J1815; J1940; J2060; J2185; J2250; J2370; J2430; J2704; J2920; J2930; J3010; J3370; J3490; J7030; J7040; J7042; J7060; J7070; J7608; J7620; P9016; P9034; P9047; A4315